=== PATIENT | female | born 1970 | race Caucasian/White ===

== ENCOUNTER 2017-09-02 14:30 | Observation (INO) ==
[2017-09-02] MEDS ORDERED: 0.9 % Sodium Chloride 1,000 ML IVC ONE (15:13)
[2017-09-02 15:29] LABS: Basophils % 0.3 %; Eosinophils % 0.4 %; Hematocrit 35.2 % (35.3-44.9); Hemoglobin 11.7 g/dL (11.5-15.4); Immature Granulocytes % 0.5 % (0-4); Lymphocytes # 2.1 K/mcL (0.6-4.6); Lymphocytes % 18.8 %; Mean Corpuscular HGB Conc 33.2 g/dL (31.6-35.5); Mean Corpuscular Hemoglobin 29.8 pg (28.0-33.3); Mean Corpuscular Volume 89.6 fL (83.0-100.0); Monocytes # 0.7 K/mcL (0.0-1.3); Monocytes % 6.4 %; Platelet Count 273 K/mcL (140-400); Red Blood Count 3.93 M/mcL (3.82-4.97); Red Cell Distribution Width 13.6 % (11.5-14.5); Segmented Neutrophils % 73.6 %
[2017-09-02 15:46] LABS: Alanine Aminotransferase 10 Units/L (7-52); Albumin 3.9 g/dL (3.5-5.7); Albumin/Globulin Ratio 1.6 (1.1-2.2); Alkaline Phosphatase 48 Units/L (34-104); Aspartate Amino Transferase 10 Units/L (13-39); BUN/Creatinine Ratio 18 (6-26); Bilirubin,Total 0.4 mg/dL (0.3-1.0); Blood Urea Nitrogen 10 mg/dL (6-20); Calcium 8.8 mg/dL (8.6-10.3); Carbon Dioxide 23 mEq/L (23-29); Chloride 107 mEq/L (98-107); Globulin 2.4 g/dL (2.4-3.5); Glucose 106 mg/dL (70-105); Osmolality,Calculated 283 (280-300); Potassium 3.4 mEq/L (3.5-5.1); Sodium 137 mEq/L (136-145); Total Protein 6.3 g/dL (6.4-8.9); eGFR For African Americans > 60 (> 60); eGFR For Non-African Americans > 60 (> 60)
--- NOTE | 2017-09-02 15:57 | Emergency Department Note ---
Disposition Clinical Impression: 7 weeks gestation of , Pyelonephritis Disposition: Admitted As Inpatient Condition: Fair Referrals: NONE,PCP [Primary Care Provider] - Forms: ED Satisfaction Letter Time of Disposition: 18:29 HPI - General Chief complaint: ED Urogenital-Female Stated complaint: UTI Time Seen by Provider: 09/02/17 14:40 Source: patient Mode of arrival: ambulatory Limitations: no limitations Nursing Notes Reviewed: Yes Vital Signs Reviewed: Yes - History of Present Illness HPI Narrative: Concern about status. 47-year-old female approximate 7 a half weeks presents for evaluation of right flank pain. Patient was having urinary symptoms over the past 2 days. Patient is having dysuria. Patient denies any vaginal bleeding or discharge. Patient states she started developing some right flank pain. Patient does have a history of kidney stone on the right side. Patient denies any fevers but states she has been taking Tylenol regularly. Patient denies any vomiting but does feel nauseous. Patient's been taking Phenergan at home. The patient denies any abdominal pain. Patient does have a confirmed intrauterine by her [facility] doctor. Patient has established care with them. Patient denies any chest pain or problems breathing. Pain in her right flank is worse with palpation. - Related Data Allergies Allergy/AdvReac Type Severity Reaction Status Date / Time No Known Allergies Allergy Verified 09/02/17 14:34 All systems ED: reviewed and negative except as stated. Constitutional: Reports: as per HPI. Denies: fever Eyes: Reports: as per HPI ENT ED: Reports: as per HPI Cardiovascular: Reports: as per HPI. Denies: chest pain Respiratory: Reports: as per HPI. Denies: cough, dyspnea Gastrointestinal: Reports: as per HPI. Denies: abdominal pain Genitourinary: Reports: as per HPI, dysuria Musculoskeletal: Reports: as per HPI Integumentary: Reports: as per HPI Neurological: Reports: as per HPI Psychiatric: Reports: as per HPI Endocrine: Reports: as per HPI Hematological/Lymphatic: Reports: as per HPI PMH - Social History Smoking Status: Never smoker Alcohol use: Reports: none Drug use: Reports: none Physical Exam - General Limitations: no limitations General appearance: alert, in no apparent distress - Head Head exam: atraumatic, normocephalic, normal inspection - Eye Eye exam: Present: normal appearance, EOMI - ENT ENT exam: normal exam, mucous membranes moist - Neck Neck exam: Present: normal inspection - Chest Chest inspection: Present: normal inspection, symmetric chest wall rise - Respiratory Respiratory exam: Present: normal lung sounds bilaterally. Absent: respiratory distress - Cardiovascular Cardiovascular exam: Present: regular rate, normal rhythm - Abdominal Exam Abdominal exam: Present: soft, tenderness. Absent: distention, guarding, rebound, rigidity - Extremities Exam Extremities exam: Present: normal inspection. Absent: pedal edema - Back Exam Back exam: Present: normal inspection, full ROM. Absent: tenderness, CVA tenderness (R), CVA tenderness (L) - Neurological Exam Neurological exam: Present: alert, oriented X3 - Skin Skin exam: Present: warm, dry, intact, normal color Course Course Narrative: Patient seen and examined. Patient had a bedside ultrasound performed which showed no evidence of hydronephrosis. Patient's kidneys appear to be within the normal dimensions. Patient also had a abdominal ultrasound obtained which showed intrauterine heart rate in the 160s and 170s. Patient will also get a urinalysis, basic lab work regarding kidney function and blood counts. Patient also given IV fluid hydration. Patient denies any need for pain medicine at this time. - Reevaluation(s) Reevaluation #1: Patient seen and examined. Patient's updated on her plan of care. Patient's urinalysis shows signs of infection. Will get a renal ultrasound. Patient denies any need for pain medication at this time. Patient appears to be resting comfortably. Time: 16:31 Reevaluation #2: Patient's updated on plan of care. Patient's agreeable to inpatient admission. Time: 18:28 - Consultations Consultation #1: Spoke with Dr. Escobar and made aware the patient was being admitted to the hospital service for resumed polynephritis with the right flank pain and dysuria with evidence of UTI. Time: 18:07 Vital Signs Temperature 97.9 F 09/02/17 14:30 Pulse Rate 68 09/02/17 14:30 Respiratory Rate 20 09/02/17 14:30 Blood Pressure 122/67 09/02/17 14:30 O2 Sat by Pulse Oximetry 100 09/02/17 14:30 Temperature 97.9 F 09/02/17 14:30 Pulse Rate 68 09/02/17 14:30 Respiratory Rate 20 09/02/17 14:30 Blood Pressure 122/67 09/02/17 14:30 O2 Sat by Pulse Oximetry 100 09/02/17 14:30 Oxygen Delivery Oxygen Delivery Room Air OB/Uterine Contractions - MDM Narrative Medical decision making narrative: 47-year-old female 7 weeks gestation presents for evaluation of right flank pain. Patient does have a history of kidney stones in the past. Patient also been having dysuria and urinary symptoms. Patient had basic lab work including electrolytes as well as blood counts. Patient's urinalysis shows evidence of infection. Patient clinically has urinary symptoms. Patient does have tenderness on the right flank. Patient had a renal ultrasound performed which shows no evidence of hydronephrosis. Patient's symptoms most consistent with pyelonephritis. On Rocephin in the emergency department. Spoke with the on- call [facility] doctor and made where the patient was given a be admitted. There is no further recommendations. Patient denies any for pain medication at this time. Patient agreeable for inpatient admission to initiate therapy. Patient did have a confirmed IUP prior to this ED department stay. Patient had a bedside ultrasound of the uterus which showed good heart tones. Patient did not get a pelvic exam as the patient is not complaining of any vaginal symptoms. There is no vaginal discharge or bleeding. - Lab Data Lab results reviewed: Yes I reviewed the patient's lab results. Result diagrams: 09/02/17 15:22 09/02/17 15:22 Lab Results 09/02/17 09/02/17 09/02/17 Range/Units 15:22 15:22 16:01 WBC 10.9 (4.3-11.1) K/mcL RBC 3.93 (3.82-4.97) M/mcL Hgb 11.7 (11.5-15.4) g/dL Hct 35.2 L (35.3-44.9) % MCV 89.6 (83.0-100.0) fL MCH 29.8 (28.0-33.3) pg MCHC 33.2 (31.6-35.5) g/dL RDW 13.6 (11.5-14.5) % Plt Count 273 (140-400) K/mcL MPV 10.0 (9.4-12.4) fL Immature Gran % 0.5 (0-4) % Seg Neutrophils % 73.6 % Lymphocytes % 18.8 % Monocytes % 6.4 % Eosinophils % 0.4 % Basophils % 0.3 % Neutrophils # 8.0 (1.6-8.9) K/mcL Lymphocytes # 2.1 (0.6-4.6) K/mcL Monocytes # 0.7 (0.0-1.3) K/mcL Eosinophils # 0.0 (0.0-0.6) K/mcL Basophils # 0.0 (0.0-0.2) K/mcL Sodium 137 (136-145) mEq/L Potassium 3.4 L (3.5-5.1) mEq/L Chloride 107 (98-107) mEq/L Carbon Dioxide 23 (23-29) mEq/L BUN 10 (6-20) mg/dL Creatinine 0.57 L (0.60-1.20) mg/dL Est GFR ( Amer) > 60 (> 60) Est GFR (Non-Af Amer) > 60 (> 60) BUN/Creatinine Ratio 18 (6-26) Glucose 106 H (70-105) mg/dL Calculated Osmolality 283 (280-300) Calcium 8.8 (8.6-10.3) mg/dL Total Bilirubin 0.4 (0.3-1.0) mg/dL AST 10 L (13-39) Units/L ALT 10 (7-52) Units/L Alkaline Phosphatase 48 (34-104) Units/L Serum Total Protein 6.3 L (6.4-8.9) g/dL Albumin 3.9 (3.5-5.7) g/dL Globulin 2.4 (2.4-3.5) g/dL Albumin/Globulin Ratio 1.6 (1.1-2.2) Urine Color Yellow (Yellow) Urine Clarity Cloudy A (Clear) Urine pH 6.0 (5.0-8.0) pH Units Ur Specific [place] > 1.030 H (1.010-1.025) Urine Protein Negative (Neg-Trace) mg/dL Urine Glucose (UA) Normal (Normal) mg/dL Urine Ketones Negative (Negative) mg/dL Urine Blood Moderate H (Negative) Urine Nitrite Negative (Negative) Urine Bilirubin Negative (Negative) Urine Urobilinogen Normal (Normal) mg/dL Ur Leukocyte Esterase Moderate H (Negative) Urine Microscopic RBC 3-5 H (0-3) per hpf Urine Microscopic WBC 30-50 H (0-3) per hpf Ur Squamous Epith Cells Many H (None-Few) per lpf Urine Bacteria Many H (None-Few) per hpf Hyaline Casts Moderate H (None-Few) per lpf Ur Culture Indicated? NO (NO) Urine Test (Negative) 09/02/17 Range/Units 16:01 WBC (4.3-11.1) K/mcL RBC (3.82-4.97) M/mcL Hgb (11.5-15.4) g/dL Hct (35.3-44.9) % MCV (83.0-100.0) fL MCH (28.0-33.3) pg MCHC (31.6-35.5) g/dL RDW (11.5-14.5) % Plt Count (140-400) K/mcL MPV (9.4-12.4) fL Immature Gran % (0-4) % Seg Neutrophils % % Lymphocytes % % Monocytes % % Eosinophils % % Basophils % % Neutrophils # (1.6-8.9) K/mcL Lymphocytes # (0.6-4.6) K/mcL Monocytes # (0.0-1.3) K/mcL Eosinophils # (0.0-0.6) K/mcL Basophils # (0.0-0.2) K/mcL Sodium (136-145) mEq/L Potassium (3.5-5.1) mEq/L Chloride (98-107) mEq/L Carbon Dioxide (23-29) mEq/L BUN (6-20) mg/dL Creatinine (0.60-1.20) mg/dL Est GFR ( Amer) (> 60) Est GFR (Non-Af Amer) (> 60) BUN/Creatinine Ratio (6-26) Glucose (70-105) mg/dL Calculated Osmolality (280-300) Calcium (8.6-10.3) mg/dL Total Bilirubin (0.3-1.0) mg/dL AST (13-39) Units/L ALT (7-52) Units/L Alkaline Phosphatase (34-104) Units/L Serum Total Protein (6.4-8.9) g/dL Albumin (3.5-5.7) g/dL Globulin (2.4-3.5) g/dL Albumin/Globulin Ratio (1.1-2.2) Urine Color (Yellow) Urine Clarity (Clear) Urine pH (5.0-8.0) pH Units Ur Specific [place] (1.010-1.025) Urine Protein (Neg-Trace) mg/dL Urine Glucose (UA) (Normal) mg/dL Urine Ketones (Negative) mg/dL Urine Blood (Negative) Urine Nitrite (Negative) Urine Bilirubin (Negative) Urine Urobilinogen (Normal) mg/dL Ur Leukocyte Esterase (Negative) Urine Microscopic RBC (0-3) per hpf Urine Microscopic WBC (0-3) per hpf Ur Squamous Epith Cells (None-Few) per lpf Urine Bacteria (None-Few) per hpf Hyaline Casts (None-Few) per lpf Ur Culture Indicated? (NO) Urine Test Positive A (Negative) - Radiology Data Radiology results reviewed: Yes I reviewed the patient's radiology results. Retroperitoneum Ultrasound 09/02/17 15:14 IMPRESSION: Unremarkable ultrasound of the kidneys and urinary bladder. D/ / Jim Marinelli MD / Jim Marinelli MD Interpreting Provider: Jim Marinelli MD Attestation Statement - Attestation Attestation: I, Terrence Hutchison DO, examined this patient [id number] and my medical decision-making was reviewed with Dr. Jose Farris, Resident Physician. I agree with the documented findings, disposition and treatment plan as described except to the extent set forth below. Please see my progress notes for details. 47-year-old female that is approximate 7 weeks based on last menstrual period and confirmatory transvaginal ultrasound presents emergency room with right-sided flank pain. Patient was treated prophylactically for urinary tract infection several weeks ago. She followed up with her obstetrics provider. The culture was negative at that time. She has had no complications. Denies any vaginal bleeding discharge cramping abnormal uterine bleeding or dysfunction at this time. Patient came in today because she was seen in urgent care for possible right-sided flank pain and urinary tract infection. They are concerned about the urine being affected and possible pyelonephritis. Patient does have a history of renal calculi and obstructing stone on that same side. Bedside ultrasound was utilized looking at the kidneys and appear to be symmetrical this time with 11 cm of overall anatomical length by 4.5 cm overall anatomical width. There are symmetric bilaterally based on evaluation. No acute signs of hydronephrosis noted at this point. Patient had urinalysis screening laboratory workup completed and then if the urine is infected and we will discuss doing definitive imaging modality of the right flank. Patient is concerning secondary to the for possible pyelonephritis and cystitis secondary to bladder dysmotility from . Patient informed of our projected course of care. Otherwise the physical exam is unremarkable. Abdomen is soft nontender nondistended with no point tenderness or guarding. She has no specific CVA tenderness but she does describe some pain with palpation over the right flank of the abdomen. Bedside ultrasound was also utilized to evaluate the fetus. Gestational sac appears to be within the uterus there is a heart tone does appear to be between 1 6170 but no visible anatomical structure noted at this point. Patient will have completion course of care in the disposition determined. See detailed documentation of the physical exam, medical intervention, medical decision-making and disposition and the resident physician's note. 1700 Patient has urine that is concerning for infection at this time. Formal ultrasound of the kidneys to be completed. Discussion will be had with obstetrics and hospitals for possible admission. Appears to be pyelonephritis and early gestation. First dose of Rocephin given here. No other clinical concern noted during evaluation.
[2017-09-02 16:15] LABS: Bilirubin,Urine Negative (Negative); Blood,Urine Moderate (Negative); Clarity,Urine Cloudy (Clear); Color,Urine Yellow (Yellow); Glucose,Urine (UA) Normal (Normal); Ketones,Urine Negative (Negative); Leukocyte Esterase,Urine Moderate (Negative); Nitrite,Urine Negative (Negative); Protein,Urine Negative (Neg-Trace); Specific Gravity,Urine > 1.030 (1.010-1.025); Urobilinogen,Urine Normal (Normal)
[2017-09-02 16:17] LABS: Bacteria,Urine Many per hpf (None-Few); Hyaline Casts,Urine Moderate per lpf (None-Few); Squamous Epithelial Cell,Urine Many per lpf (None-Few); WBC,Urine 30-50 per hpf (0-3)
[2017-09-02] MEDS ORDERED: cefTRIAXone 1,000 MG in Water for inj. (sterile) 10 ML IVP ONE (16:22)
[2017-09-02] MEDS ORDERED: Acetaminophen 325 MG TABLET PO PRN (19:53)
--- NOTE | 2017-09-02 20:06 | Internal Med History&Physical ---
Date of Encounter: 09/02/17 Time of Encounter: 19:15 Assessment and Plan (1) DVT prophylaxis Current visit: Yes Status: Acute Pt has no hx or family Hx of PE/DVT. Her symptoms is mild and she keeps her normal activities. 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 Pt doesn't want heparin or lovenox. She promise to keep ambulating and we put EPCD when she is at bed rest. (2) UTI (urinary tract infection) Current visit: No Status: Acute Pt has fever, right flank pain, UA positive. Consider acute pyelonephritis. Py is afebrile in ER and WBC is WNL. - OB consulted by ER physician. - Rocephin started in ER, will continue rocephin 1000mg iv daily. - Encourage pt to hydrate herself. Qualifiers: Urinary tract infection type: acute pyelonephritis Qualified Code(s): N10 - Acute pyelonephritis (3) 7 weeks gestation of Current visit: Yes Status: Acute Bedside US done by ER physician, shows good fetus heart beating per ER documentation. Pt will f/u her OB as outpatient. (4) Pyelonephritis Current visit: Yes Status: Acute Management as above. Internal Medicine - H&P: HPI Chief complaint: Dysuria, right flank pain Admitted From: Home Plans for Post Hospital Care: Home History of present illness: Ms. Lomax is a 47 year old female with hx of right kidney stone s/p stone extraction, with 7and1/2 weeks of present to ER for dysuria and right flank pain. Dysuria and burning on urination stated yesterday. Pt has right flank pain since this morning. She feels fever and took Tylenol by herself but doesn't know the exact number. Pt has nausea but thinks it is due to because it is not new. No vomiting. Pt came to ER with concern of kidney stone. US rt kidney shows no stone or hydronephrosis. UA shows UTI. Pt was admitted for UTI and suspected pyelonephritis. Past Med Surg Social Fam HX - Past Medical History Medical history: non-contributory, kidney stones Psychiatric history: no psych history - Past Surgical History Surgical History: cholecystectomy - Social History Smoking Status: Never smoker Smokeless Tobacco Status: No Alcohol use: none Drug use: none - Family History Father Hx Family Neurologic Disorders: (Brain bleed) Internal Medicine - H&P: Meds 3 Allergy/AdvReac Type Severity Reaction Status Date / Time No Known Allergies Allergy Verified 09/02/17 14:34 All Systems PM: A 10-system review of systems was performed and is negative for pertinent findings except as documented above in the HPI. - Constitutional Vitals: Temp Pulse Resp BP Pulse Ox 97.9 F 77 12 121/61 100 09/02/17 14:30 09/02/17 18:28 09/02/17 19:37 09/02/17 19:37 09/02/17 18:28 General appearance: Present: A&O X 3, pleasant, no acute distress, answers questions appropriately - Head Head exam: Present: atraumatic, normocephalic - Eye Eye exam: Present: PERRL, conjuntiva pink, sclera anicteric Pupils: Present: PERRL - Neck Neck exam general surgery: Present: supple, trachea midline. Absent: lymphadenopathy - Respiratory Respiratory exam: Present: CTAB. Absent: accessory muscle use, rales, rhonchi, wheezes - Cardiovascular Cardiovascular exam: Present: RRR, +S1, +S2. Absent: diastolic murmur, gallop, rubs, systolic murmur - GI/Abdominal GI/Abdominal exam: Present: normal bowel sounds, soft, no peritoneal signs. Absent: distended, tenderness Additional comments: CVAT negative B/L - Extremities Exam Extremities exam: Present: warm, radial pulses palpable and symmetrical. Absent : calf tenderness, cyanotic, pedal edema - Neurological Exam Neurological exam: Present: CN II-XII intact, oriented X3, no focal deficits. Absent: pronater drift, facial droop, speech deficit - Skin Skin exam: Present: dry, intact Internal Med - H&P Results - Labs CBC & Chem 7: 09/02/17 15:22 09/02/17 15:22
[2017-09-03 05:16] LABS: Basophils % 0.3 %; Eosinophils # 0.1 K/mcL (0.0-0.6); Eosinophils % 0.5 %; Hematocrit 32.8 % (35.3-44.9); Immature Granulocytes % 0.3 % (0-4); Lymphocytes # 2.2 K/mcL (0.6-4.6); Lymphocytes % 24.3 %; Mean Corpuscular HGB Conc 33.5 g/dL (31.6-35.5); Mean Corpuscular Hemoglobin 29.7 pg (28.0-33.3); Mean Corpuscular Volume 88.6 fL (83.0-100.0); Mean Platelet Volume 10.4 fL (9.4-12.4); Monocytes # 0.7 K/mcL (0.0-1.3); Monocytes % 7.6 %; Neutrophils # 6.2 K/mcL (1.6-8.9); Platelet Count 241 K/mcL (140-400); Red Cell Distribution Width 13.7 % (11.5-14.5)
[2017-09-03 05:34] LABS: BUN/Creatinine Ratio 15 (6-26); Blood Urea Nitrogen 8 mg/dL (6-20); Calcium 8.6 mg/dL (8.6-10.3); Carbon Dioxide 24 mEq/L (23-29); Chloride 109 mEq/L (98-107); Glucose 96 mg/dL (70-105); Osmolality,Calculated 284 (280-300); Potassium 3.4 mEq/L (3.5-5.1); Sodium 138 mEq/L (136-145); eGFR For African Americans > 60 (> 60); eGFR For Non-African Americans > 60 (> 60)
--- NOTE | 2017-09-03 10:39 | Internal Med Progress Note ---
Date of Encounter: 09/03/17 Time of Encounter: 08:40 - Assessment and plan (1) UTI (urinary tract infection) Current Visit: Yes Status: Acute Assessment and plan: Urine cloudy, moderate amount of blood and leukocyte esterase, moderate amount hyaline casts. Many bacteria noted, microscopic white cells 30-50. Patient reports right flank pain and dysuria. Patient has positive CVA tenderness right side. She has remained afebrile. Continue Rocephin urine culture is pending. Tylenol for pain. Qualifiers: Urinary tract infection type: acute pyelonephritis Qualified Code(s): N10 - Acute pyelonephritis (2) 7 weeks gestation of Current Visit: Yes Status: Acute Assessment and plan: Intrauterine shown by ultrasound in the emergency department. Patient was aware of . She will follow up with her own OB. (3) Pyelonephritis Current Visit: Yes Status: Acute Assessment and plan: Plan as above. (4) DVT prophylaxis Current Visit: Yes Status: Acute Assessment and plan: Patient has declined pharmacologic prophylaxis. She is ambulatory in the room. SCDs ordered for bed rest. - Time Spent With Patient less than 15 minutes - Subjective Interval history: Patient was seen and assessed at 8:40 AM. She is alert and awake and pleasant. She reports continued right flank pain and is agreeable to continued admission due to pyelonephritis and . She denies headache, blurred vision, abdominal pain, vaginal discharge or vaginal bleeding. She reports nausea that has been present since being . - Constitutional Vitals: Temp Pulse Resp BP Pulse Ox 99.6 F 72 18 110/70 97 09/03/17 07:36 09/03/17 07:36 09/03/17 07:36 09/03/17 07:36 09/03/17 07:36 General appearance: Present: cooperative, A&O X 3, pleasant, no acute distress, answers questions appropriately - Head Head exam: Present: atraumatic, normal inspection, normocephalic - Eye Eye exam: Present: normal appearance, conjuntiva pink, sclera anicteric - Neck Neck exam general surgery: Present: supple, trachea midline. Absent: lymphadenopathy - Respiratory Respiratory exam: Present: CTAB. Absent: accessory muscle use, chest wall tenderness, rales, rhonchi, wheezes - Cardiovascular Cardiovascular exam: Present: RRR, +S1, +S2. Absent: diastolic murmur, gallop, rubs, systolic murmur - GI/Abdominal GI/Abdominal exam: Present: normal bowel sounds, soft. Absent: distended, hepatomegaly, tenderness - Extremities Exam Extremities exam: Present: normal capillary refill, normal inspection, warm, radial pulses palpable and symmetrical. Absent: calf tenderness, cyanotic, pedal edema, tenderness - Neurological Exam Neurological exam: Present: alert, oriented X3, no focal deficits. Absent: facial droop, speech deficit - Skin Skin exam: Present: dry, intact, normal color, warm. Absent: rash Internal Medicine: Result - Labs CBC & Chem 7: 09/03/17 04:11 09/03/17 04:11 Labs: Short CBC 09/03/17 Range/Units 04:11 WBC 9.2 (4.3-11.1) K/mcL Hgb 11.0 L (11.5-15.4) g/dL Hct 32.8 L (35.3-44.9) % Plt Count 241 (140-400) K/mcL Neutrophils # 6.2 (1.6-8.9) K/mcL BMP 09/03/17 04:11 Sodium 138 Potassium 3.4 L Chloride 109 H Carbon Dioxide 24 BUN 8 Creatinine 0.54 L Glucose 96 Calcium 8.6 Consult Discharge Plan - Plan Referrals: NONE,PCP [Primary Care Provider] -
[2017-09-03] MEDS: cefTRIAXone 1,000 MG in Water for inj. (sterile) 10 ML IVPB SCH (15:16)
--- NOTE | 2017-09-04 11:09 | OB/GYN Progress Note ---
Date of Encounter: 09/04/17 Time of Encounter: 10:45 - Assessment and Plan (1) 8 weeks gestation of Current Visit: Yes Status: Acute Follow up in office with routine care as scheduled. (2) Pyelonephritis Current Visit: Yes Status: Acute At the time of assessment the urine culture was not available, so it is recommended to use Keflex PO until microbiological results are available. Patient may be discharged home with phenergan for nausea or may use an OTC combination of 1/2 tablet of unisom at bedtime along with Vitamin B6 every 8 hours for nausea and vomiting of . Patient may also be discharged home with metoclopramide TID with meals and before bed if nausea not controlled with previous recommendations. Patient to follow up in office for routinely scheduled care. Thank you for this consult. Subjective - Subjective Principal diagnosis: Pyelonephritis Interval history: Ms Lomax, a 47 year old at 8 weeks and 0 days gestation was admitted to a medical-surgical floor for pyelonephritis on September 02. She has been receiving IV antibiotics since admission and states that her flank pain has resolved. She c/o nausea and states the phenergan she was given did help. She denies headaches, vision changes, epigastric pain, cramping, vaginal discharge, vaginal bleeding, and leaking of fluid. We have been consulted from an obstetrical standpoint. Antepartum ROS: no new complaints, no loss of fluid, no vaginal bleeding, no contractions Objective - Vital Signs Vital Signs: Vital Signs Temp Pulse Resp BP Pulse Ox 09/04/17 10:42 98.2 F 73 20 91/48 96 09/04/17 06:53 98.2 F 65 18 106/62 09/04/17 02:51 98.2 F 63 16 124/71 97 09/03/17 22:56 97.9 F 58 18 98/44 98 09/03/17 18:32 98 F 79 16 110/65 100 09/03/17 14:59 99.4 F 71 20 103/66 100 Intake and Output 09/03/17 09/04/17 09/04/17 23:59 07:59 15:59 Intake Total 120 / 120 100 / 100 120 / 120 Output Total 1200 / 1200 150 / 150 Balance -1080 / -1080 -50 / -50 120 / 120 Intake: Oral 120 / 120 100 / 100 120 / 120 Output: Urine 1200 / 1200 150 / 150 Other: Meal Dinner Breakfast Percent of Meal Consumed 30% 50% # Voids 1 Weight 88.269 kg Patient Weight 09/04/17 23:59 Weight 88.269 kg - Exam FHR comments: Did not auscultate due to gestation. - Labs Labs: Abnormal lab results RBC 3.70 M/mcL (3.82-4.97) L 09/03/17 04:11 Hgb 11.0 g/dL (11.5-15.4) L 09/03/17 04:11 Hct 32.8 % (35.3-44.9) L 09/03/17 04:11 Potassium 3.4 mEq/L (3.5-5.1) L 09/03/17 04:11 Chloride 109 mEq/L (98-107) H 09/03/17 04:11 Creatinine 0.54 mg/dL (0.60-1.20) L 09/03/17 04:11 AST 10 Units/L (13-39) L 09/02/17 15:22 Serum Total Protein 6.3 g/dL (6.4-8.9) L 09/02/17 15:22 Urine Clarity Cloudy (Clear) A 09/02/17 16:01 Ur Specific [place] > 1.030 (1.010-1.025) H 09/02/17 16:01 Urine Blood Moderate (Negative) H 09/02/17 16:01 Ur Leukocyte Esterase Moderate (Negative) H 09/02/17 16:01 Urine Microscopic RBC 3-5 per hpf (0-3) H 09/02/17 16:01 Urine Microscopic WBC 30-50 per hpf (0-3) H 09/02/17 16:01 Ur Squamous Epith Cells Many per lpf (None-Few) H 09/02/17 16:01 Urine Bacteria Many per hpf (None-Few) H 09/02/17 16:01 Hyaline Casts Moderate per lpf (None-Few) H 09/02/17 16:01 Urine Test Positive (Negative) A 09/02/17 16:01
[2017-09-04 14:56] VITALS: BP 96/54
--- NOTE | 2017-09-04 15:08 | Discharge Summary ---
Date of Encounter: 09/04/17 Time of Encounter: 11:00 - Discharge Diagnosis (1) Pyelonephritis Priority: Primary Status: Acute Comments: Presented with right flank pain, dysuria or frequency. UA indicative of UTI. Afebrile, no elevated WBC. Received 2 doses IV Rocephin while inpatient. No urine culture available for review at time of discharge. Evaluated by PIANO REFINISHER who recommended discharging on Keflex. Symptoms significantly improved at time of discharge. (2) 8 weeks gestation of Priority: Primary Status: Acute Comments: confirmed intrauterine per her outpatient PIANO REFINISHER. Evaluated by OB and patient who recommended follow-up in office with routine care as scheduled. - Discharge Medications Prescriptions: Promethazine [Phenergan] 12.5 mg PO Q6HR PRN #28 tablet PRN Reason: Nausea And Vomiting Cephalexin [Keflex] 500 mg PO BID #16 capsule Home Medications: Gabapentin [Neurontin] 300 mg PO TID 09/03/17 [History] Pnv with Ca,No.72/Iron/FA [Pnv Plus Multivit Tab] 1 tab PO DAILY [History] Tizanidine HCl 4 mg PO TID PRN 09/03/17 [History] Cephalexin [Keflex] 500 mg PO BID #16 capsule 09/04/17 [Rx] Promethazine [Phenergan] 12.5 mg PO Q6HR PRN #28 tablet 09/04/17 [Rx] Allergies/Adverse Reactions: 3 Allergy/AdvReac Type Severity Reaction Status Date / Time No Known Allergies Allergy Verified 09/02/17 14:34 Date of admission: 09/02/17 19:15 Primary care physician: PCP NONE Consults: 09/04/17 09:53 Consult to ETYMOLOGY PROFESSOR [CONS] Routine Consulting Provider: PIANO REFINISHER [place] Reason for Consult: UTI/pyleonephritis Call Completed: Yes Discharging clinician: Radah Singh Anticipated date of discharge: 09/04/17 - Patient Status Disposition: Home, Self-Care Condition: Good Functional capacity at discharge: independent ambulation Overall status at discharge: patient is back to baseline - Discharge Instructions Instructions: Urinary Tract Infection in Women (DC), Acute Pyelonephritis (DC) , Cephalexin (By mouth), Promethazine (By mouth) Follow Up With: NONE,PCP [Primary Care Provider] - - Diet and Activity Activity: increase activity as tolerated Diet: advance to your usual diet Interval History: Seen and examined at bedside, patient is new to me. Information obtained from chart review and patient report. A short reports minimal right flank pain, no dysuria or frequency. Says she feels better overall like to discharge home today. No ABD pain, no vaginal bleeding Hospital course: See assessment and plan for hospital course - Time Spent with Patient Total time spent providing and/or coordinating discharge services: - Constitutional Vitals: Temp Pulse Resp BP Pulse Ox 98.5 F 79 18 96/54 100 09/04/17 14:54 09/04/17 14:54 09/04/17 14:54 09/04/17 14:54 09/04/17 14:54 General appearance: Present: cooperative, A&O X 3, pleasant, no acute distress, answers questions appropriately - Head Head exam: Present: atraumatic, normocephalic - Eye Eye exam: Present: PERRL, conjuntiva pink, sclera anicteric Pupils: Present: PERRL - Neck Neck exam general surgery: Present: supple, trachea midline. Absent: lymphadenopathy - Respiratory Respiratory exam: Present: CTAB. Absent: accessory muscle use, rales, rhonchi, wheezes - Cardiovascular Cardiovascular exam: Present: RRR, +S1, +S2. Absent: diastolic murmur, gallop, rubs, systolic murmur - GI/Abdominal GI/Abdominal exam: Present: normal bowel sounds, soft, no peritoneal signs. Absent: distended, tenderness - Extremities Exam Extremities exam: Present: warm, radial pulses palpable and symmetrical. Absent : calf tenderness, cyanotic, pedal edema - Neurological Exam Neurological exam: Present: CN II-XII intact, oriented X3, no focal deficits. Absent: pronater drift, facial droop, speech deficit - Skin Skin exam: Present: dry, intact
[2017-09-04] MEDS: cefTRIAXone 1,000 MG in Water for inj. (sterile) 10 ML IVPB SCH (16:28)
== END 2017-09-04 16:40 | disposition home or self-care (01) ==
LOC: 3BNU 14:30 → EMEROO 14:30 → 3BNU 19:40
PROVIDERS: ADMIT Nurse Practitioner Family; ATTEND Registered Nurse

== ENCOUNTER → 2018-02-17 19:34 | Observation (INO) ==
[2018-02-17 14:59] LABS: Bilirubin,Urine Negative (Negative); Blood,Urine Trace-intact (Negative); Clarity,Urine Clear (Clear); Color,Urine Yellow (Yellow); Glucose,Urine (UA) Normal (Normal); Ketones,Urine 15 mg/dL (Negative); Leukocyte Esterase,Urine Negative (Negative); Nitrite,Urine Negative (Negative); Protein,Urine Negative (Neg-Trace); Urobilinogen,Urine Normal (Normal)
[2018-02-17 15:05] LABS: Bacteria,Urine Few per hpf (None-Few); RBC,Urine 0-3 per hpf (0-3); WBC,Urine 0-3 per hpf (0-3)
[2018-02-17 15:19] LABS: Amphetamine Screen,Urine Negative ng/mL (Cutoff=1000); Barbiturate Screen,Urine Negative ng/mL (Cutoff=200); Benzodiazepines Screen,Urine Negative ng/mL (Cutoff=200); Cannabinoid Screen,Urine Negative ng/mL (Cutoff = 50); Cocaine Screen,Urine Negative ng/mL (Cutoff= 300); Opiate Screen,Urine Negative ng/mL (Cutoff=300); Phencyclidine Screen,Urine Negative ng/mL (Cutoff=25)
[2018-02-17 15:31] LABS: Basophils % 0.2 %; Eosinophils # 0.1 K/mcL (0.0-0.6); Eosinophils % 0.7 %; Hemoglobin 10.9 g/dL (11.5-15.4); Immature Granulocytes % 0.7 % (0-4); Lymphocytes # 1.8 K/mcL (0.6-4.6); Lymphocytes % 14.9 %; Mean Corpuscular HGB Conc 34.1 g/dL (31.6-35.5); Mean Corpuscular Hemoglobin 29.8 pg (28.0-33.3); Mean Corpuscular Volume 87.4 fL (83.0-100.0); Mean Platelet Volume 10.6 fL (9.4-12.4); Monocytes # 0.8 K/mcL (0.0-1.3); Monocytes % 6.6 %; Neutrophils # 9.3 K/mcL (1.6-8.9); Platelet Count 175 K/mcL (140-400); Red Blood Count 3.66 M/mcL (3.82-4.97); Red Cell Distribution Width 14.5 % (11.5-14.5); Segmented Neutrophils % 76.9 %
--- NOTE | 2018-02-17 15:50 | Anesthesia Progress Note ---
Date of Encounter: 02/17/18 Time of Encounter: 15:39 Anesthesia Note - Note Note: Anesthesia Consult Pt was seen regarding possibility of epidural placement in upcoming labor. Pt is currently 31 weeks . Pt states she had a fall approximately 1 year ago prior to . 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 Pt also stated that she is to undergo post- spinal surgical intervention regarding L5-S1 disc herniation. After speaking with patient regarding these issues and also speaking with Dr. Simi MD, it was determined that with pre-existing neuropathies, it would be in her best interest to avoid epidural placement during labor. Pt was understanding of this determination. 02/17/18 15:39 02/17/18 15:51 02/17/18 15:56 Reason for Cancellation: Other
[2018-02-17 15:57] LABS: BUN/Creatinine Ratio 12 (6-26); Blood Urea Nitrogen 5 mg/dL (6-20); Calcium 8.3 mg/dL (8.6-10.3); Carbon Dioxide 22 mEq/L (23-29); Chloride 107 mEq/L (98-107); Glucose 92 mg/dL (70-105); Osmolality,Calculated 283 (280-300); Potassium 2.7 mEq/L (3.5-5.1); Sodium 138 mEq/L (136-145); eGFR For African Americans > 60 (> 60); eGFR For Non-African Americans > 60 (> 60)
--- NOTE | 2018-02-17 19:26 | OB/GYN Progress Note ---
Date of Encounter: 02/17/18 Time of Encounter: 19:18 - Assessment and Plan (1) Right flank pain Current Visit: Yes Status: Acute UA with trace blood. Negative leukocytes. Negative nitrites. Ultrasound shows: No evidence of urinary tract stone disease or hydronephrosis. Small complex cystic area at the left renal superior pole, without an internal vascularity is indeterminate, possibly a hemorrhagic or proteinaceous cyst. This is new compared with prior exams. Recommend follow-up ultrasound to assess for change or persistence. Determination for additional imaging such as MRI may be made at that time. Suspect pt has passed a stone. Will treat pain with flexeril. Push PO fluids. Discharge home with precautions. POC discussed with Dr. Connelly (2) 31 weeks gestation of Current Visit: Yes Status: Acute (3) Advanced maternal age during in third trimester Current Visit: No Status: Acute Subjective - Subjective Interval history: 47 year-old presenting at 31w4d with c/o right flank pain that radiates to right side of abdomen. She states the pain started last evening and has gotten worse. She has a history of kidney stones with most recent one year ago. She also had pyelonephritis about 2 months ago. She states the pain is similar to those events. She denies contractions, leaking, bleeding. Good FM. She does also reports some suprapubic tenderness. No fevers or chills. She also has a history of a bulging disc in her lumbar spine for which she is to have surgery once she is no longer . Antepartum ROS: movement normal, no loss of fluid, no vaginal bleeding, no contractions Objective - Vital Signs Vital Signs: Intake and Output 02/17/18 02/17/18 02/17/18 07:59 15:59 23:59 Other: Weight 91.5 kg Patient Weight 02/17/18 23:59 Weight 91.5 kg - Exam FHR: category 1 FHR comments: FHT reassuring for GA Auscultation: bilateral: normal Abdomen: Present: soft, gravid, tenderness (suprapubic tenderness, no fundal tenderness) Uterus: Present: normal. Absent: tenderness Comments: +right CVAT - Labs Labs: Abnormal lab results WBC 12.1 K/mcL (4.3-11.1) H 02/17/18 15:13 RBC 3.66 M/mcL (3.82-4.97) L 02/17/18 15:13 Hgb 10.9 g/dL (11.5-15.4) L 02/17/18 15:13 Hct 32.0 % (35.3-44.9) L 02/17/18 15:13 Neutrophils # 9.3 K/mcL (1.6-8.9) H 02/17/18 15:13 Potassium 2.7 mEq/L (3.5-5.1) L 02/17/18 15:13 Carbon Dioxide 22 mEq/L (23-29) L 02/17/18 15:13 BUN 5 mg/dL (6-20) L 02/17/18 15:13 Creatinine 0.43 mg/dL (0.60-1.20) L 02/17/18 15:13 Calcium 8.3 mg/dL (8.6-10.3) L 02/17/18 15:13 Urine Ketones 15 mg/dL (Negative) H 02/17/18 14:45 Urine Blood Trace-intact (Negative) H 02/17/18 14:45
[~2018-02-17 19:34] MED LIST: *HR* OxyCODONE Immed Rel 5 MG TABLET PO PRN; Ondansetron 4 MG/2 ML VIAL IVP PRN; Ringers Solution, Lactated 1,000 ML IVC ONE; Ringers Solution, Lactated 500 ML IVC ONE
== END | disposition home or self-care (01) ==
LOC: 1NENULAB
PROVIDERS: ADMIT Registered Nurse; ATTEND Registered Nurse

== ENCOUNTER → 2018-02-26 10:44 | Observation (INO) ==
[2018-02-26 10:25] LABS: Amphetamine Screen,Urine Negative ng/mL (Cutoff=1000); Barbiturate Screen,Urine Negative ng/mL (Cutoff=200); Benzodiazepines Screen,Urine Negative ng/mL (Cutoff=200); Cannabinoid Screen,Urine Negative ng/mL (Cutoff = 50); Cocaine Screen,Urine Negative ng/mL (Cutoff= 300); Opiate Screen,Urine Negative ng/mL (Cutoff=300); Phencyclidine Screen,Urine Negative ng/mL (Cutoff=25)
--- NOTE | 2018-02-26 10:40 | Discharge Summary ---
Date of Encounter: 02/26/18 Time of Encounter: 10:39 - Discharge Diagnosis (1) 32 weeks gestation of Priority: Secondary Status: Acute Comments: admitted for observation for decreased movement (2) Advanced maternal age during in third trimester Priority: Secondary Status: Acute (3) NST (non-stress test) reactive on surveillance Priority: Primary Status: Acute Comments: reactive nst. FHR baseline 130 bpm moderate variability +15x15 accels no decels noted. - Discharge Medications Home Medications: Pnv with Ca,No.72/Iron/FA [Pnv Plus Multivit Tab] 1 tab PO DAILY [History] Ferrous Sulfate [Iron] 2 tab PO DAILY 02/05/18 [History] Tylenol 500 mg PO PRN PRN 02/26/18 [History] Allergies/Adverse Reactions: 3 Allergy/AdvReac Type Severity Reaction Status Date / Time No Known Allergies Allergy Verified 02/17/18 14:29 Data Procedures and tests throughout hospitalization: Laboratory Tests 02/26/18 09:45 Urine Opiates Screen Negative Ur Barbiturates Screen Negative Ur Phencyclidine Scrn Negative Ur Amphetamines Screen Negative U Benzodiazepines Scrn Negative Urine Cocaine Screen Negative U Marijuana (THC) Screen Negative Labs on day of discharge: Labs from last 24 hours 02/26/18 09:45 Urine Opiates Screen Negative Ur Barbiturates Screen Negative Ur Phencyclidine Scrn Negative Ur Amphetamines Screen Negative U Benzodiazepines Scrn Negative Urine Cocaine Screen Negative U Marijuana (THC) Screen Negative Date of admission: 02/26/18 09:23 Primary care physician: PCP NONE Discharging clinician: Ines Machado Anticipated date of discharge: 02/26/18 - Patient Status Disposition: Home, Self-Care Condition: Good Functional capacity at discharge: independent ambulation - Discharge Instructions Follow Up With: NONE,PCP [Primary Care Provider] - Giovana Connelly MD [Partnered Physician] - - Diet and Activity Activity: increase activity as tolerated Diet: regular diet 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 Patient denies and LOF, VB or contractions. Patient states she has only felt baby move twice in the two hours prior to coming to labor and delivery. Time Attestation: Total time spent providing and/or coordinating discharge services: Exam - Constitutional General appearance IM: A&O X 3, pleasant, answers questions appropriately - Respiratory Respiratory exam: Present: CTAB - Cardiovascular Cardiovascular exam IM: Present: RRR, +S1, +S2 - GI/Abdominal GI/Abdominal exam IM: normal bowel sounds - Extremities Exam Extremities exam IM: Present: full ROM, normal capillary refill, normal inspection - Neurological Exam Neurological exam: alert, oriented X3, reflexes normal - Other Additional findings: FHT 130 bpm moderate variability +15x15 accels no decels noted. Reactive nst - VTE Reasons for not Prescribing Prophylaxis: Treatment not Indicated - Low risk for VTE
== END | disposition home or self-care (01) ==
LOC: 1NENULAB
PROVIDERS: ADMIT Obstetrics & Gynecology; ATTEND Obstetrics & Gynecology

== ENCOUNTER → 2018-02-28 16:20 | Observation (INO) ==
[2018-02-28 13:33] LABS: Bilirubin,Urine Negative (Negative); Blood,Urine Negative (Negative); Clarity,Urine Cloudy (Clear); Color,Urine Dark Yellow (Yellow); Glucose,Urine (UA) Normal (Normal); Ketones,Urine 80 mg/dL (Negative); Leukocyte Esterase,Urine Large (Negative); Nitrite,Urine Negative (Negative); Protein,Urine 30 mg/dL (Neg-Trace); Specific Gravity,Urine 1.022 (1.010-1.025); Urobilinogen,Urine Normal (Normal)
[2018-02-28 13:35] LABS: Bacteria,Urine Moderate per hpf (None-Few); Hyaline Casts,Urine Moderate per lpf (None-Few); Squamous Epithelial Cell,Urine Many per lpf (None-Few); WBC,Urine 30-50 per hpf (0-3)
[2018-02-28 13:48] LABS: Calcium Oxalate Crystals,Urine Present
[2018-02-28 13:58] LABS: Amphetamine Screen,Urine Negative ng/mL (Cutoff=1000); Barbiturate Screen,Urine Negative ng/mL (Cutoff=200); Benzodiazepines Screen,Urine Negative ng/mL (Cutoff=200); Cannabinoid Screen,Urine Negative ng/mL (Cutoff = 50); Cocaine Screen,Urine Negative ng/mL (Cutoff= 300); Opiate Screen,Urine Negative ng/mL (Cutoff=300); Phencyclidine Screen,Urine Negative ng/mL (Cutoff=25)
--- NOTE | 2018-02-28 15:25 | OB/GYN Progress Note ---
Date of Encounter: 02/28/18 Time of Encounter: 15:15 - Assessment and Plan (1) 33 weeks gestation of Current Visit: Yes Status: Acute IUP FHR 120 Reactive NST No ctxs Urinalysis positive for dehydration IV fluids Vaginosis panel pending Anticipate discharge home with follow up routine care and prn Subjective - Subjective Interval history: at 33 weks and 1 day presents to triage with c/o dark rd blood on underwear and when wiping this morning, burning on urination, back pain and "feeling crampy." PMH positive for kidney stones. Denies leaking fluid, states baby moving well. Denies WATERMAN, visual disturbancs and epigastric pain. States has appointment at [facility] tomorrow. Antepartum ROS: vaginal bleeding, movement normal, no loss of fluid, no contractions Objective - Vital Signs Vital Signs: Intake and Output 02/27/18 02/28/18 02/28/18 23:59 07:59 15:59 Other: Weight 91.3 kg Patient Weight 02/28/18 23:59 Weight 91.3 kg - Exam FHR: category 1 FHR comments: 120, Category 1 Auscultation: bilateral: normal Abdomen: Present: normal appearance, gravid Uterus: Present: normal. Absent: tenderness Comments: Spec exam, no blood noted in vaginal vault. Thin white discharge noted, vaginosis panel obtained. - Labs Labs: Abnormal lab results Urine Clarity Cloudy (Clear) A 02/28/18 13:10 Urine Protein 30 mg/dL (Neg-Trace) H 02/28/18 13:10 Urine Ketones 80 mg/dL (Negative) H 02/28/18 13:10 Ur Leukocyte Esterase Large (Negative) H 02/28/18 13:10 Urine Microscopic RBC 5-15 per hpf (0-3) H 02/28/18 13:10 Urine Microscopic WBC 30-50 per hpf (0-3) H 02/28/18 13:10 Ur Squamous Epith Cells Many per lpf (None-Few) H 02/28/18 13:10 Urine Bacteria Moderate per hpf (None-Few) H 02/28/18 13:10 Hyaline Casts Moderate per lpf (None-Few) H 02/28/18 13:10 Ur Culture Indicated? NO. (NO) A 02/28/18 13:10
[2018-02-28 15:39] LABS: Candida DNA Not Detected (Not Detect); Gardnerella DNA ***DETECTED*** (Not Detect); Trichomonas DNA Not Detected (Not Detect)
[~2018-02-28 16:20] MED LIST changes: -*HR* OxyCODONE Immed Rel 5 MG TABLET PO PRN; -Ondansetron 4 MG/2 ML VIAL IVP PRN; +Ringers Solution, Lactated 1,000 ML ONE; -Ringers Solution, Lactated 500 ML IVC ONE
== END | disposition home or self-care (01) ==
LOC: 1NENULAB
PROVIDERS: ADMIT Student in an Organized Health Care Education/Training Program; ATTEND Student in an Organized Health Care Education/Training Program

== ENCOUNTER 2018-03-18 15:52 | Observation (INO) ==
--- NOTE | 2018-03-18 16:50 | OB/GYN Progress Note ---
Date of Encounter: 03/18/18 Time of Encounter: 16:48 - Assessment and Plan (1) 35 weeks gestation of Current Visit: Yes Status: Acute Follow-up with Dr. Connelly as already scheduled labor precautions given Discharge home (2) Back pain affecting in third trimester Current Visit: Yes Status: Acute Follow-up with ortho as needed Subjective - Subjective Principal diagnosis: dysuria Interval history: Ms. Lomax is a 47-year-old at 35 weeks 5 days gestation who presents with a complaint of a 2 day history of lower back pain and dysuria with intermittent anuria. She endorses good movement and denies vaginal bleeding, contractions, leakage of fluid. She does complain of low back pain that is severely limiting her movement. She reports she was referred to [facility] for consultation and prescribed neurontin, but Dr. Connelly has advised her not to take it. Antepartum ROS: new complaints, movement normal, no loss of fluid, no vaginal bleeding, no contractions Objective - Vital Signs Vital Signs: Intake and Output 03/18/18 03/18/18 03/18/18 07:59 15:59 23:59 Other: Weight 91.5 kg Patient Weight 03/18/18 23:59 Weight 91.5 kg - Exam FHR: category 1 FHR comments: Baseline 140 Moderate variability Accelerations present 15 x 15 No decelerations FHR category I No toco activity Auscultation: bilateral: normal Abdomen: Present: normal appearance, soft, gravid Uterus: Present: normal, firm Cervical dilation: 1 Cervix effacement: thick station: ballottable
[2018-03-18 17:06] LABS: Bilirubin,Urine Negative (Negative); Blood,Urine Negative (Negative); Clarity,Urine Cloudy (Clear); Color,Urine Yellow (Yellow); Glucose,Urine (UA) Normal (Normal); Ketones,Urine 40 mg/dL (Negative); Leukocyte Esterase,Urine Small (Negative); Nitrite,Urine Negative (Negative); PH,Urine 6.5 pH Units (5.0-8.0); Protein,Urine Negative (Neg-Trace); Specific Gravity,Urine 1.015 (1.010-1.025); Urobilinogen,Urine Normal (Normal)
[2018-03-18 17:09] LABS: Bacteria,Urine None Seen per hpf (None-Few); Hyaline Casts,Urine None Seen per lpf (None-Few); Squamous Epithelial Cell,Urine Many per lpf (None-Few)
[2018-03-18 17:13] LABS: Amphetamine Screen,Urine Negative ng/mL (Cutoff=1000); Barbiturate Screen,Urine Negative ng/mL (Cutoff=200); Benzodiazepines Screen,Urine Negative ng/mL (Cutoff=200); Cannabinoid Screen,Urine Negative ng/mL (Cutoff = 50); Cocaine Screen,Urine Negative ng/mL (Cutoff= 300); Opiate Screen,Urine Negative ng/mL (Cutoff=300); Phencyclidine Screen,Urine Negative ng/mL (Cutoff=25)
[2018-03-18] MEDS ORDERED: Gabapentin 300 MG CAPSULE PO ONE (17:17)
== END 2018-03-18 18:10 | disposition home or self-care (01) ==
LOC: 1NENULAB
PROVIDERS: ADMIT Obstetrics & Gynecology; ATTEND Obstetrics & Gynecology

== ENCOUNTER 2018-04-10 05:58 | Inpatient (IN) ==
[2018-04-10] MEDS ORDERED: Metoclopramide 10 MG/2 ML VIAL IVP PRN ×2 (06:31→12:30)
[2018-04-10] MEDS ORDERED: Famotidine 20 MG/2 ML VIAL IVP PRN (06:31)
[2018-04-10] MEDS ORDERED: Naloxone 0.4 MG/ML INJ IVP PRN (06:31)
[2018-04-10] MEDS ORDERED: Ringers Solution, Lactated 1,000 ML ONE (06:37)
[2018-04-10] MEDS ORDERED: Ringers Solution, Lactated 1,000 ML IVC SCH ×2 (06:45→12:30)
[2018-04-10 07:04] LABS: Basophils % 0.2 %; Eosinophils # 0.1 K/mcL (0.0-0.6); Eosinophils % 0.6 %; Hematocrit 32.5 % (35.3-44.9); Hemoglobin 11.4 g/dL (11.5-15.4); Immature Granulocytes % 0.8 % (0-4); Lymphocytes # 1.8 K/mcL (0.6-4.6); Mean Corpuscular HGB Conc 35.1 g/dL (31.6-35.5); Mean Corpuscular Hemoglobin 30.6 pg (28.0-33.3); Mean Corpuscular Volume 87.1 fL (83.0-100.0); Mean Platelet Volume 11.3 fL (9.4-12.4); Monocytes # 0.9 K/mcL (0.0-1.3); Monocytes % 6.7 %; Neutrophils # 10.1 K/mcL (1.6-8.9); Platelet Count 195 K/mcL (140-400); Red Blood Count 3.73 M/mcL (3.82-4.97); Red Cell Distribution Width 14.7 % (11.5-14.5); Segmented Neutrophils % 77.7 %
[2018-04-10 07:24] LABS: Amphetamine Screen,Urine Negative ng/mL (Cutoff=1000); Barbiturate Screen,Urine Negative ng/mL (Cutoff=200); Benzodiazepines Screen,Urine Negative ng/mL (Cutoff=200); Cannabinoid Screen,Urine Negative ng/mL (Cutoff = 50); Cocaine Screen,Urine Negative ng/mL (Cutoff= 300); Opiate Screen,Urine Negative ng/mL (Cutoff=300); Phencyclidine Screen,Urine Negative ng/mL (Cutoff=25)
[2018-04-10] MEDS ORDERED: CeFAZolin Premix DUPLEX 2,000 MG/50 ML BAG IVPB ONE (07:26)
[2018-04-10] MEDS ORDERED: *HR* FentaNYL (PF) 100 MCG/2 ML VIAL ONE (07:31)
[2018-04-10] MEDS ORDERED: *HR* Oxytocin 10 UNIT/ML VIAL IM ONE ×2 (07:31→09:15)
[2018-04-10] MEDS ORDERED: Morphine Sulfate/PF 5mg/10mL Vial ONE (07:31)
[2018-04-10] MEDS ORDERED: *HR* Phenylephrine 10 MG/ML VIAL ONE (07:32)
--- NOTE | 2018-04-10 08:02 | Anesthesia Evaluation PreOp ---
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: Other (L5-S1 radiculopathy continuous pain from herniated disk (/ )) Other Medical History: Renal (stones) Anesthesia History: Past Anesthesia (kidney stone, GB) : Yes () Alcohol Use: none Drug use: none Medications and Allergies Pnv with Ca,No.72/Iron/FA [Pnv Plus Multivit Tab] 1 tab PO DAILY [History] Ferrous Sulfate [Iron] 2 tab PO DAILY 02/05/18 [History] Tylenol 500 mg PO PRN PRN 02/26/18 [History] 3 Allergy/AdvReac Type Severity Reaction Status Date / Time No Known Allergies Allergy Verified 04/10/18 06:42 - Meds/Allergy Pre-op Review Medications Reviewed: Yes Allergies Reviewed: Yes Beta Blockers on Current Med List: No Anesthesia Results - Labs 04/10/18 06:20 Anesthesia Exam O2 Sat Height 1.68 m Weight 91 kg NPO (# of Hours): > 8 hRS Pain Scale: 0 Pain Scale Used: Numeric (1 - 10) - HEENT Pupil (Motor): Pupils equal, EOMI Mallampati: III Teeth: Normal Oral Opening: Greater than 3 - SILICA FILTER OPERATOR LOC: Oriented SILICA FILTER OPERATOR Motor: Normal RUE, Normal LUE, Normal RLE, Normal LLE, Normal Face SILICA FILTER OPERATOR Sensory: Normal: RUE, LUE, RLE, LLE, Face - Cardiac Rhythm: Regular Murmur: None JVD: No Carotid Bruit: No - Pulmonary Breath Sounds: bilateral Clear Respiratory Effort: Symmetrical Anesthesia Assess/Plan ASA Score: 2 Modified Mateus Scale for Level of Consciousness: Cooperative, oriented, and tranquil Anesthetic Plan: Regional (Spinal) Autologous Blood: Yes Monitoring Plan: Standard Monitors Recovery Plan: PACU
--- NOTE | 2018-04-10 08:07 | OB/GYN History & Physical ---
Date of Encounter: 04/10/18 Time of Encounter: 08:00 Assessment and Plan (1) Advanced maternal age during in third trimester Current visit: No Status: Acute 39+ weeks AMA h/o severe degenerative disease with radiculopathy Plan: consent for PC/S with BPS signed History of Present Illness HPI: Ms. Lomax is a 47 year old female who presents to L&D for a scheduled PC/ S. She has a history of severe degenerative spinal disease with radiculopathy. Anesthesia here is not comfortable doing an epidural and they do not recommend that she push in order not to exarcebate her spinal injury. She is scheduled for spinal surgery after delivery in [place]. We counseled her to go to [facility] which she did but then returned and says that she does not want to deliver there. I put in an official consult with Anesthesia and I went into her room with the Anesthesia team to give her the option of going to [facility] but she requests a Primary . No LOF, VB or ctxs, feels good FM. Past Med Surg Social Fam HX - Past Medical History Medical history: kidney stones, other Additional medical history: herniated disk L5. 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 Psychiatric history: no psych history - Past Surgical History Surgical History: breast surgery, cholecystectomy Additional surgical history: L5, kidney stone removal - Social History Smoking Status: Never smoker Smokeless Tobacco Status: No Alcohol use: none Drug use: none - Family History Father Adopted: No Family Member Ethnicity: Non- Living Status: Hx Family Cardiac Disorders: Yes (cardiomyopathy and stroke) Hx Family Respiratory Disorders: No Hx Family Cancer: No Hx Family GI Disorders: No Hx Family Endocrine Disorder: No Hx Family Neuromuscular Disorders: No Hx Family Neurologic Disorders: No Hx Family HEENT Disorders: No Hx Family Autoimmune Disorders: No Hx Family Medical Disorders: Yes (cardiomyopathy and strokes) Obstetrical History - Pregnancies : 4 Para: 3 Medications and Allergies Pnv with Ca,No.72/Iron/FA [Pnv Plus Multivit Tab] 1 tab PO DAILY [History] Ferrous Sulfate [Iron] 2 tab PO DAILY 02/05/18 [History] Tylenol 500 mg PO PRN PRN 02/26/18 [History] 3 Allergy/AdvReac Type Severity Reaction Status Date / Time No Known Allergies Allergy Verified 04/10/18 06:42 Review of System OB All systems PM: reviewed and no additional remarkable complaints except as stated Exam - Constitutional Constitutional: well developed - HEENT HEENT: PERRL - Neck Neck exam: full ROM - Lungs Respiratory exam: CTAB - Cardiovascular Cardiovascular exam: RRR - Abdomen Abdomen: Present: gravid - Extremities Extremities exam: normal inspection Results Result Diagrams: 04/10/18 06:20 Abnormal lab results WBC 13.0 K/mcL (4.3-11.1) H 04/10/18 06:20 RBC 3.73 M/mcL (3.82-4.97) L 04/10/18 06:20 Hgb 11.4 g/dL (11.5-15.4) L 04/10/18 06:20 Hct 32.5 % (35.3-44.9) L 04/10/18 06:20 RDW 14.7 % (11.5-14.5) H 04/10/18 06:20 Neutrophils # 10.1 K/mcL (1.6-8.9) H 04/10/18 06:20 All other labs normal.
--- NOTE | 2018-04-10 08:44 | Anesthesia Procedures ---
Date of Encounter: 04/10/18 Time of Encounter: 08:41 Procedures: Anesthesia - Epidural/Spinal Patient ID/Chart reviewed: Yes Patient examined: Yes OB Eval: Gestational age: 39 OB Eval: : 4 OB Eval: Hx Para: 3 OB Eval: Dilated at (cm): 2 OB Eval: Contractions: Non-stressed pattern Consent Obtained: Yes Supplemental Oxygen: None/Room Air Site Prep: Aseptic Technique, Sterile prep and drape, Povidone-Iodine 1% Patient position: upright Local Anesthetic: Lidocaine 1% (3) Amount of Local Anesthetic used: 3 Interspace Used: L2-L3 Loss of Resistance (MARTINA): No Blood: No CSF: Yes Spinal Needle Gauge: 25 Spinal Dose: marcaine 0.5% 2.5cc, duramorph 0.25,fentanyl 10mcg Procedure: aseptic, chepe well, easy, L2-3, csf x 4 quads, effective
[2018-04-10] MEDS ORDERED: Acetaminophen IV 1,000 MG/100 ML INFUS..BTL IVPB ONE (08:50)
[2018-04-10] MEDS ORDERED: *HR* FentaNYL (PF) 100 MCG/2 ML VIAL IVP PRN (08:50)
[2018-04-10] MEDS ORDERED: *HR* OxyCODONE Immed Rel 5 MG TABLET PO PRN (08:50)
[2018-04-10] MEDS ORDERED: *HR* Promethazine 25 MG/ML VIAL IVP PRN ×2 (09:30→12:30)
--- NOTE | 2018-04-10 09:44 | OB/GYN Procedure Note ---
Section - Date of procedure: 04/10/18 Preop diagnosis: breech, other Post-op diagnosis: same Procedure: primary low transverse, bilateral tubal ligation Surgeon: Giovana Stover Blood Loss: 400 Was there an training and development assistant present: Yes Chief Safety Officer: Suzie Lenz Anesthesia Type: Spinal section complications: none Disposition: L&D Recovery Room Specimens: Placenta, Right tube segment, Left tube segment - Narrative Narrative: After informed consent was obtained, the patient was brought back to the operative suite where adequate spinal anesthesia was obtained. The patient was then placed in the dorsal supine position and prepped and draped in sterile fashion. A Pfannenstiel skin incision was made with a blade and carried down through the subcutaneous tissues to the fascia, which was extended in the transverse fascia. The fascial incision was then dissected off the rectus muscles bluntly. The rectus muscle was in the midline allowing adequate entry into the abdomen with good visualization of the underlying bowel and bladder. The bladder blade was placed, and the vesicouterine fascia was incised to create a bladder flap in a low transverse position. This was developed digitally. A low transverse uterine incision was made with the blade and carried down through the layers of the uterus. The uterine incision was then extended digitally. My hand was placed inside the pelvis, and the feet delivered first with the entire infant delivered atraumatically with gentle fundal pressure. The infant was passed to the awaiting nursing staff for additional care. The cord was doubly clamped and cut. The placenta was then manually extracted. The uterine incision was readily identified and closed in two layers, first one with running locking suture followed by a second imbricating layer of 0 Vicryl. Attention was then focused on the bilateral tubal ligation. A Preet clamp was placed in the mid fallopian tube on the right and elevated. A window was made in the avascular segment of the mesosalpinx. Proximal and distal 0-plain suture ligation with mid fallopian tube transection was performed. This tubal ligation procedure was done in a bilateral fashion. Upon completion of tubal ligation, the fascia was closed with 0-Vicryl. Subcutaneous tissues were copiously irrigated, and final bleeders were cauterized before closure with 3-0 vicryl. The incision was then reapproximated with 4-0 vicryl in a standard fashion. The patient tolerated the procedure well and was taken to the recovery room in stable condition. weight 3000g, breech, APGARS 8/9.
[2018-04-10] MEDS ORDERED: Ondansetron 4 MG/2 ML VIAL IVP PRN ×2 (11:16→12:30)
[2018-04-10] MEDS ORDERED: Simethicone 80 MG TAB.CHEW PO PRN (12:30)
[2018-04-10] MEDS ORDERED: NON-FORMULARY MEDICATION 1 EACH EACH (Pnv With Ca,No.72/Iron/Fa [Pnv Prenatal Plus Multivi PO SCH (12:30)
[2018-04-10] MEDS ORDERED: Sennosides 8.6 MG TABLET PO PRN (12:30)
[2018-04-10] MEDS ORDERED: *HR* Meperidine 25 MG/ML SYRINGE IVP PRN (12:30)
[2018-04-10] MEDS ORDERED: Oxytocin 20 units/ LR 1000 mL 20 UNIT/1,000 ML BAG IVC SCH (12:30)
--- NOTE | 2018-04-10 15:28 | Anesthesia Evaluation Post Op ---
Date of Encounter: 04/10/18 Time of Encounter: 15:26 - Vital Signs Vital Signs: Vital Signs/O2 Sat, Most Current Temp Pulse Resp BP Pulse Ox 97.6 F 53 16 119/71 97 04/10/18 14:20 04/10/18 14:20 04/10/18 14:20 04/10/18 14:20 04/10/18 14:20 - Lungs Lungs: Clear Ascult./Percussion - Airway Airway: Non-obstructed - Cardiovascular Regular Rate - Mental Status Mental Status: Alert & Oriented, Answers Appropriately - Pain Pain Scale: 3 Pain Scale used: Numeric (1 - 10) - Nausea Vomiting Nausea Vomiting: Present - Hydration Hydration: Unable to tolerate oral fluids - Discharge PostOp Status: Transfer Patient to floor (slightly nauseated, minimal pain, VSS )
[2018-04-10] MEDS: Prenatal Vit/FA 1 EACH TABLET PO SCH (15:51)
[2018-04-11] MEDS: Ibuprofen 600 MG TABLET PO PRN ×4 (00:19→22:13)
[2018-04-11 06:01] LABS: Basophils % 0.1 %; Eosinophils # 0.1 K/mcL (0.0-0.6); Eosinophils % 0.3 %; Hematocrit 26.2 % (35.3-44.9); Immature Granulocytes % 0.6 % (0-4); Lymphocytes # 1.6 K/mcL (0.6-4.6); Mean Corpuscular HGB Conc 33.6 g/dL (31.6-35.5); Mean Corpuscular Hemoglobin 29.7 pg (28.0-33.3); Mean Corpuscular Volume 88.5 fL (83.0-100.0); Monocytes % 6.7 %; Neutrophils # 11.7 K/mcL (1.6-8.9); Platelet Count 141 K/mcL (140-400); Red Blood Count 2.96 M/mcL (3.82-4.97); Red Cell Distribution Width 14.9 % (11.5-14.5); Segmented Neutrophils % 81.3 %
[2018-04-11 06:02] LABS: Hemoglobin 8.8 g/dL (11.5-15.4)
[2018-04-11] MEDS: *HR* OxyCODONE/APAP 5/325 TABLET PO PRN ×3 (06:56→21:06)
[2018-04-11] MEDS: Prenatal Vit/FA 1 EACH TABLET PO SCH (08:50)
--- NOTE | 2018-04-11 11:23 | OB/GYN Progress Note ---
Date of Encounter: 04/11/18 Time of Encounter: 11:20 - Assessment and Plan (1) S/P section Current Visit: Yes Status: Acute Stable POD#1 PP anemia will increase iron to BID Continue current management Anticipate discharge tomorrow, (2) anemia Current Visit: Yes Status: Acute increase to BID iron Subjective - Subjective Interval history: Pt states feels well, pain well managed, tolerates diet, voiding without difficulty, bottlefeeding Patient reports: appetite normal, voiding normally, pain well controlled, ambulating normally [place]: doing well Objective - Vital Signs Latest vital signs: Vital Signs Temp Pulse Resp BP Pulse Ox 04/11/18 07:12 97.9 F 70 14 99/52 97 04/11/18 00:11 98.1 F 65 14 101/59 97 04/10/18 20:25 97.7 F 53 14 116/63 100 04/10/18 15:30 97.5 F L 60 16 119/68 97 04/10/18 14:20 97.6 F 53 16 119/71 97 04/10/18 13:00 55 16 115/48 97 04/10/18 12:30 97.5 F L 55 18 112/65 97 04/10/18 12:00 97.9 F 63 104/60 98 Intake and Output 04/10/18 04/11/18 04/11/18 23:59 07:59 15:59 Intake Total 600 / 600 180 / 180 Output Total 400 / 400 200 / 200 Balance 200 / 200 -20 / -20 Intake: Oral 600 / 600 180 / 180 Output: Urine 200 / 200 Catheter 400 / 400 Other: Meal Breakfast Percent of Meal Consumed 70% - Exam Lungs: bilateral: normal Chest: Normal S1, Normal S2 Extremities: Present: normal, tenderness Abdomen: Present: soft Incision: Present: dressed Uterus: Present: firm (at U) - Labs Labs: Laboratory Results - last 24 hr 04/11/18 05:41 WBC 14.4 H RBC 2.96 L Hgb 8.8 L D Hct 26.2 L MCV 88.5 MCH 29.7 MCHC 33.6 RDW 14.9 H Plt Count 141 MPV 11.0 Immature Gran % 0.6 Seg Neutrophils % 81.3 Lymphocytes % 11.0 Monocytes % 6.7 Eosinophils % 0.3 Basophils % 0.1 Neutrophils # 11.7 H Lymphocytes # 1.6 Monocytes # 1.0 Eosinophils # 0.1 Basophils # 0.0
[2018-04-12] MEDS: *HR* OxyCODONE/APAP 5/325 TABLET PO PRN (06:16)
[2018-04-12 07:52] VITALS: BP 106/59
[2018-04-12] MEDS: Prenatal Vit/FA 1 EACH TABLET PO SCH (08:03)
[2018-04-12] MEDS: Ibuprofen 600 MG TABLET PO PRN (08:04)
--- NOTE | 2018-04-12 09:37 | OB/GYN Progress Note ---
Date of Encounter: 04/12/18 Time of Encounter: 09:35 - Assessment and Plan (1) S/P section Current Visit: Yes Status: Acute 1. Patient to be discharged home with precautions at 48 hour S/P . Patient states that she will followup with spinal surgery for the management of chronic degenerative disk disease once cleared by Dr. Gilbert. 2. Pt. states that she has run out of gabapentin for the home management of her chronic pain. Pt. instructed to followup with pain clinic for continuation of this medication. Pt. informed of risks of taking Percocet + Gabapenin and states that she has home support for the care of her while on these medications. 3. Patient to receive iron prescription for home-care for the management of anemia. The patient is in agreement with this plan and understands the stated precautions. Subjective - Subjective Principal diagnosis: S/P at 39+ weeks Interval history: Patient admits to continued back pain with radiculopathy into her left leg. Patient states that this pain is exacerbated by movement and makes ambulation difficult. The patient admits to chest "heaviness" but feels that this is positional in nature from laying in bed. The patient denies shortness of breath , headache, or vision changes. The patient is afebrile, non-tachypnic, non-tachycardic, non-diaphoretic Patient reports: appetite normal, voiding normally, pain well controlled, other (Difficulty with ambulation d/t chronic degenerative disk disease ) [place]: doing well, bottle feeding Objective - Latest Vital Signs Latest vital signs: Vital Signs Temp Pulse Resp BP Pulse Ox 04/12/18 07:51 98.2 F 76 14 106/59 98 04/11/18 19:45 98.5 F 67 14 110/65 98 Intake and Output 04/11/18 04/12/18 04/12/18 23:59 07:59 15:59 Intake Total 120 / 120 Output Total 600 / 600 Balance -480 / -480 Intake: Oral 120 / 120 Output: Urine 600 / 600 Other: Meal Breakfast Percent of Meal Consumed 50% Weight 90.5 kg Patient Weight 04/12/18 23:59 Weight 90.5 kg - Exam Lungs: bilateral: normal Chest: Normal S1, Normal S2 Extremities: Present: normal Abdomen: Present: soft, tenderness (Diffuse moderate tenderness noted to palpation ). Absent: rigidity, distention Uterus: Present: normal, firm Uterus Position: 1 Finger Below Umbilicus
--- NOTE | 2018-04-12 09:55 | Discharge Summary ---
Date of Encounter: 04/12/18 Time of Encounter: 09:53 - Discharge Diagnosis (1) S/P section Priority: Primary Status: Acute - Discharge Medications Prescriptions: Ibuprofen [Motrin] 600 mg PO Q6HR PRN #30 tablet PRN Reason: Cramping OxyCODONE/APAP 5/325 [Percocet 5/325 MG] 1 each PO Q6HR PRN 5 Days #21 tablet PRN Reason: Moderate pain 4-6 Docusate [Colace] 100 mg PO BID #20 capsule Ferrous Sulfate 325 mg PO BIDWM #120 tablet Home Medications: Pnv with Ca,No.72/Iron/FA [Pnv Plus Multivit Tab] 1 tab PO DAILY [History] Tylenol 500 mg PO PRN PRN 02/26/18 [History] Docusate [Colace] 100 mg PO BID #20 capsule 04/12/18 [Rx] Ferrous Sulfate 325 mg PO BIDWM #120 tablet 04/12/18 [Rx] Ibuprofen [Motrin] 600 mg PO Q6HR PRN #30 tablet 04/12/18 [Rx] OxyCODONE/APAP 5/325 [Percocet 5/325 MG] 1 each PO Q6HR PRN 5 Days #21 tablet [Rx] Simethicone [Gas-X] 80 mg PO TID PRN tab.chew 04/12/18 [Rx] Allergies/Adverse Reactions: 3 Allergy/AdvReac Type Severity Reaction Status Date / Time No Known Allergies Allergy Verified 04/10/18 06:42 Data Procedures and tests throughout hospitalization: Laboratory Tests 04/10/18 04/10/18 04/11/18 06:20 06:50 05:41 WBC 13.0 H 14.4 H RBC 3.73 L 2.96 L Hgb 11.4 L 8.8 L D Hct 32.5 L 26.2 L MCV 87.1 88.5 MCH 30.6 29.7 MCHC 35.1 33.6 RDW 14.7 H 14.9 H Plt Count 195 141 MPV 11.3 11.0 Immature Gran % 0.8 0.6 Seg Neutrophils % 77.7 81.3 Lymphocytes % 14.0 11.0 Monocytes % 6.7 6.7 Eosinophils % 0.6 0.3 Basophils % 0.2 0.1 Neutrophils # 10.1 H 11.7 H Lymphocytes # 1.8 1.6 Monocytes # 0.9 1.0 Eosinophils # 0.1 0.1 Basophils # 0.0 0.0 Urine Opiates Screen Negative Ur Barbiturates Screen Negative Ur Phencyclidine Scrn Negative Ur Amphetamines Screen Negative U Benzodiazepines Scrn Negative Urine Cocaine Screen Negative U Marijuana (THC) Screen Negative Ur Drug Screen Interp See Below - Impressions Review of systems: Patient admits to continued back pain with radiculopathy into the left lower extremity. Patient complains of some chest "heavines", but believes that this is positionally-related due to laying in bed. Patient is afebrile, denies shortness of breath, headache, or vision change. She is non-tachypnic, non-tachycardic, not diaphoretic. Plan: 1. Patient to be discharged home with precautions at 48 hour S/P . Patient states that she will followup with spinal surgery for the management of chronic degenerative disk disease once cleared by Dr. Gilbert. 2. Pt. states that she has run out of gabapentin for the home management of her chronic pain. Pt. instructed to followup with pain clinic for continuation of this medication. Pt. informed of risks of taking Percocet + Gabapenin and states that she has home support for the care of her while on these medications. 3. Patient to receive iron prescription for home-care for the management of anemia. The patient is in agreement with this plan and understands the stated precautions. Date of admission: 04/10/18 05:58 Primary care physician: PCP NONE Discharging clinician: Jessica Aranda Anticipated date of discharge: 04/12/18 - Patient Status Disposition: Home, Self-Care Condition: Good Functional capacity at discharge: independent ambulation Overall status at discharge: patient is progressing back to baseline - Discharge Instructions Follow Up With: NONE,PCP [Primary Care Provider] - Giovana Connelly MD [Partnered Physician] - - Diet and Activity Activity: increase activity as tolerated Diet: advance to your usual diet Hospital Course Reason for admission: section Delivery: section Episiotomy: none Laceration: none Other procedures: none complications: none Discharge diagnosis: IUP at term delivered baby: female Time Attestation: Total time spent providing and/or coordinating discharge services: Time Spent: Less than 30 minutes - VTE Documentation of Mechanical Device: Intermittent pneumatic compression device Exam - Constitutional Vitals: Temp Pulse Resp BP Pulse Ox 98.2 F 76 14 106/59 98 04/12/18 07:51 04/12/18 07:51 04/12/18 07:51 04/12/18 07:51 04/12/18 07:51 General appearance IM: cooperative, A&O X 3, pleasant, no acute distress, answers questions appropriately - Respiratory Respiratory exam: Present: CTAB. Absent: accessory muscle use, decreased breath sounds, prolonged expiratory phase, rales, respiratory distress, rhonchi , stridor, wheezes, tachypnea - Cardiovascular Cardiovascular exam IM: Present: RRR, +S1, +S2. Absent: gallop, JVD, rubs, +S3 , +S4, systolic murmur, tachycardia - GI/Abdominal GI/Abdominal exam IM: tenderness Incision: normal, dry, intact, warm, dressed - Uterine Tone: Firm Uterus Position: 1 Finger Below Umbilicus, Midline - Extremities Exam Extremities exam IM: Present: normal capillary refill, normal inspection, radial pulses palpable and symmetrical - Neurological Exam Neurological exam: alert, oriented X3, no focal deficits
== END 2018-04-12 12:44 | disposition home or self-care (01) | DRG 766 ==
LOC: 1NENULAB 05:58 → 1NENUOBS 12:28
PROVIDERS: ADMIT Student in an Organized Health Care Education/Training Program; ATTEND Student in an Organized Health Care Education/Training Program

== ENCOUNTER 2018-04-16 19:20 | Observation (INO) ==
[2018-04-16] MEDS ORDERED: GI Cocktail 40 ML EACH PO ONE (19:44)
[2018-04-16] MEDS ORDERED: *HR* OxyCODONE Immed Rel 5 MG TABLET PO STA (19:45)
[2018-04-16 20:19] LABS: Basophils # 0.1 K/mcL (0.0-0.2); Basophils % 0.5 %; Eosinophils # 0.2 K/mcL (0.0-0.6); Hematocrit 29.2 % (35.3-44.9); Immature Granulocytes % 1.4 % (0-4); Lymphocytes # 1.8 K/mcL (0.6-4.6); Lymphocytes % 17.4 %; Mean Corpuscular HGB Conc 34.2 g/dL (31.6-35.5); Mean Corpuscular Hemoglobin 30.4 pg (28.0-33.3); Mean Corpuscular Volume 88.8 fL (83.0-100.0); Mean Platelet Volume 10.2 fL (9.4-12.4); Monocytes # 0.7 K/mcL (0.0-1.3); Monocytes % 7.2 %; Neutrophils # 7.2 K/mcL (1.6-8.9); Platelet Count 233 K/mcL (140-400); Red Blood Count 3.29 M/mcL (3.82-4.97); Red Cell Distribution Width 13.8 % (11.5-14.5); Segmented Neutrophils % 71.5 %
[2018-04-16 20:38] LABS: BUN/Creatinine Ratio 22 (6-26); Blood Urea Nitrogen 13 mg/dL (6-20); Calcium 8.6 mg/dL (8.6-10.3); Carbon Dioxide 24 mEq/L (23-29); Chloride 109 mEq/L (98-107); Glucose 99 mg/dL (70-105); Osmolality,Calculated 294 (280-300); Sodium 142 mEq/L (136-145); eGFR For Non-African Americans > 60 (> 60)
[2018-04-16 20:38] LABS: Albumin 3.4 g/dL (3.5-5.7); Albumin/Globulin Ratio 1.4 (1.1-2.2); Bilirubin,Indirect 0.4 mg/dL (0.0-1.2); Bilirubin,Total 0.4 mg/dL (0.3-1.0); Globulin 2.5 g/dL (2.4-3.5); Total Protein 5.9 g/dL (6.4-8.9)
[2018-04-16 20:39] LABS: Troponin I < 0.03 ng/mL (< 0.04)
[2018-04-16] MEDS ORDERED: Isovue-370 500 ML INFUS..BTL IV ONE ×2 (20:45→20:48)
--- NOTE | 2018-04-16 20:56 | Emergency Department Note ---
Disposition Clinical Impression: Abnormal chest CT, Weakness, Peripheral edema Disposition: Admitted As Inpatient Condition: Good Forms: ED Satisfaction Letter General Adult HPI - General Chief complaint: ED Chest Pain Stated complaint: chest pain into back Time Seen by Provider: 04/16/18 19:33 Source: patient Mode of arrival: ambulatory Limitations: no limitations Nursing Notes Reviewed: Yes Vital Signs Reviewed: Yes - History of Present Illness HPI Narrative: Patient presents today for evaluation of left-sided chest pain. She states that she had a approximately 3 days ago. The patient states that she was mildly anemic. She has been having fatigue. She developed left-sided chest pain today that was in the area of the left breast that radiates to the back. Worse with inspiration. She states that she is had increased swelling of her extremities as well as epigastric pain and lower abdominal pain. Epigastric pain is worse with foods. It makes her mildly nauseous. Lower abdominal pain she believes is likely secondary to the surgery. She has mild tenderness to the right lower quadrant region. Pain Scale: 5 - Related Data Home Medications Medication Instructions Recorded Confirmed Pnv with Ca,No.72/Iron/FA [Pnv 1 tab PO DAILY 09/03/17 04/10/18 Plus Multivit Tab] Tylenol 500 mg PO PRN PRN 02/26/18 04/10/18 Previous Rx's Medication Instructions Recorded Docusate [Colace] 100 mg PO BID #20 capsule 04/12/18 Ferrous Sulfate 325 mg PO BIDWM #120 tablet 04/12/18 Ibuprofen [Motrin] 600 mg PO Q6HR PRN #30 tablet 04/12/18 OxyCODONE/APAP 5/325 [Percocet 1 each PO Q6HR PRN 5 Days #21 04/12/18 5/325 MG] tablet Simethicone [Gas-X] 80 mg PO TID PRN tab.chew 04/12/18 Allergies Allergy/AdvReac Type Severity Reaction Status Date / Time No Known Allergies Allergy Verified 04/10/18 06:42 Review of Systems: CONSTITUTIONAL: Generalized weakness and fatigue No weight loss, fever, chills HEENT: Eyes: No visual changes. Ears, Nose, Throat: No hearing loss, difficulty talking or unable to swallow. SKIN: No rash or itching. CARDIOVASCULAR: Left-sided chest pain that radiates to the back RESPIRATORY: No shortness of breath, cough or sputum. GASTROINTESTINAL: Abdominal pain with nausea that is worse with foods. No vomiting or diarrhea. GENITOURINARY: No burning on urination or hematuria. NEUROLOGICAL: Dizziness with standing No headache, syncope, paralysis, ataxia, numbness or tingling in the extremities. No change in bowel or bladder control. MUSCULOSKELETAL: No muscle pain, back pain, joint pain or stiffness. Past Medical History - Past Medical History Medical history: Reports: kidney stones, other Surgical history: Reports: breast surgery, cholecystectomy Psychiatric history: Reports: no psych history ADMITTING CLERK history: Reports: no ADMITTING CLERK history - Social History Smoking Status: Never smoker Smokeless Tobacco Status: No Alcohol use: Reports: none Drug use: Reports: none Physical Exam General: Well appearing, nontoxic, no acute distress Head: Normocephalic Atraumatic Eyes: PERRL, EOMI ENT: Airway patent, no stridor Neck: supple, no meningismus Chest: Lungs clear to auscultation bilateral Cardiac: Regular rhythm Abdomen: site without erythema. Mild tenderness to the right side. Patient also has mild tenderness to epigastric region. There is no rebound or guarding to any of her abdominal pain. Musculoskeletal: +1 pitting edema throughout the feet into the lower calves. Skin: No rash, normal skin tone Neuro: Alert and Oriented to person, place, and time; No focal deficit, Course - Reevaluation(s) Reevaluation #1: Symptoms initially per improved with GI cocktail. Patient's epigastric pain is likely related to gastritis versus early peptic ulcer disease. Her d-dimer was found to be elevated. She will undergo further CTA testing. We will continue to scan into her abdomen and pelvis secondary to the abdominal pain. Reevaluation #2: Patient CTA does not show pulmonary embolus but does show mildly dilated cardiac chambers and the concerns for some mild pulmonary edema. Patient also has peripheral edema. Concern for hypertrophic cardiomyopathy. We will discuss with cardiology. Reevaluation #3: After discussing with cardiology and given the fact she is bradycardic. She will undergo further admission and cardiac workup. - Consultations Consultation #1: Discussed cardiology. Concern for hypertrophic cardiomyopathy. Admit for further evaluation. Consultation #2: Discussed with hospitalist. Patient accepted for admission. Vital Signs Temperature 98.4 F 04/16/18 19:25 Pulse Rate 54 04/16/18 19:25 Respiratory Rate 18 04/16/18 19:25 Blood Pressure 142/60 04/16/18 19:25 O2 Sat by Pulse Oximetry 97 04/16/18 19:25 Temperature 98.4 F 04/16/18 19:25 Pulse Rate 52 04/16/18 22:29 Respiratory Rate 16 04/16/18 22:29 Blood Pressure 101/62 04/16/18 22:29 O2 Sat by Pulse Oximetry 99 04/16/18 22:29 Oxygen Delivery Oxygen Delivery Room Air Medical Decision Making - Medical Records Medical records reviewed: Yes I reviewed the patient's medical records. - Lab Data Lab results reviewed: Yes I reviewed the patient's lab results. Result diagrams: 04/16/18 19:43 04/16/18 19:43 Lab Results 04/16/18 04/16/18 04/16/18 Range/Units 19:43 19:43 19:44 WBC 10.0 (4.3-11.1) K/mcL RBC 3.29 L (3.82-4.97) M/mcL Hgb 10.0 L (11.5-15.4) g/dL Hct 29.2 L (35.3-44.9) % MCV 88.8 (83.0-100.0) fL MCH 30.4 (28.0-33.3) pg MCHC 34.2 (31.6-35.5) g/dL RDW 13.8 (11.5-14.5) % Plt Count 233 D (140-400) K/mcL MPV 10.2 (9.4-12.4) fL Immature Gran % 1.4 (0-4) % Seg Neutrophils % 71.5 % Lymphocytes % 17.4 % Monocytes % 7.2 % Eosinophils % 2.0 % Basophils % 0.5 % Neutrophils # 7.2 (1.6-8.9) K/mcL Lymphocytes # 1.8 (0.6-4.6) K/mcL Monocytes # 0.7 (0.0-1.3) K/mcL Eosinophils # 0.2 (0.0-0.6) K/mcL Basophils # 0.1 (0.0-0.2) K/mcL D-Dimer (0-500) ng/mLFEU Sodium 142 (136-145) mEq/L Potassium 3.0 L (3.5-5.1) mEq/L Chloride 109 H (98-107) mEq/L Carbon Dioxide 24 (23-29) mEq/L BUN 13 (6-20) mg/dL Creatinine 0.60 (0.60-1.20) mg/dL Est GFR ( Amer) > 60 (> 60) Est GFR (Non-Af Amer) > 60 (> 60) BUN/Creatinine Ratio 22 (6-26) Glucose 99 (70-105) mg/dL Calculated Osmolality 294 (280-300) Calcium 8.6 (8.6-10.3) mg/dL Total Bilirubin 0.4 (0.3-1.0) mg/dL Direct Bilirubin 0.0 (0.0-0.2) mg/dL Indirect Bilirubin 0.4 (0.0-1.2) mg/dL AST 16 (13-39) Units/L ALT 14 (7-52) Units/L Alkaline Phosphatase 85 (34-104) Units/L Troponin I < 0.03 (< 0.04) ng/mL Serum Total Protein 5.9 L (6.4-8.9) g/dL Albumin 3.4 L (3.5-5.7) g/dL Globulin 2.5 (2.4-3.5) g/dL Albumin/Globulin Ratio 1.4 (1.1-2.2) Lipase 9 L (11-82) Units/L Urine Color (Yellow) Urine Clarity (Clear) Urine pH (5.0-8.0) pH Units Ur Specific [place] (1.010-1.025) Urine Protein (Neg-Trace) mg/dL Urine Glucose (UA) (Normal) mg/dL Urine Ketones (Negative) mg/dL Urine Blood (Negative) Urine Nitrite (Negative) Urine Bilirubin (Negative) Urine Urobilinogen (Normal) mg/dL Ur Leukocyte Esterase (Negative) Urine Microscopic RBC (0-3) per hpf Urine Microscopic WBC (0-3) per hpf Ur Squamous Epith Cells (None-Few) per lpf Urine Bacteria (None-Few) per hpf Hyaline Casts (None-Few) per lpf Ur Culture Indicated? (NO) 04/16/18 04/16/18 Range/Units 19:57 22:12 WBC (4.3-11.1) K/mcL RBC (3.82-4.97) M/mcL Hgb (11.5-15.4) g/dL Hct (35.3-44.9) % MCV (83.0-100.0) fL MCH (28.0-33.3) pg MCHC (31.6-35.5) g/dL RDW (11.5-14.5) % Plt Count (140-400) K/mcL MPV (9.4-12.4) fL Immature Gran % (0-4) % Seg Neutrophils % % Lymphocytes % % Monocytes % % Eosinophils % % Basophils % % Neutrophils # (1.6-8.9) K/mcL Lymphocytes # (0.6-4.6) K/mcL Monocytes # (0.0-1.3) K/mcL Eosinophils # (0.0-0.6) K/mcL Basophils # (0.0-0.2) K/mcL D-Dimer 2283 H (0-500) ng/mLFEU Sodium (136-145) mEq/L Potassium (3.5-5.1) mEq/L Chloride (98-107) mEq/L Carbon Dioxide (23-29) mEq/L BUN (6-20) mg/dL Creatinine (0.60-1.20) mg/dL Est GFR ( Amer) (> 60) Est GFR (Non-Af Amer) (> 60) BUN/Creatinine Ratio (6-26) Glucose (70-105) mg/dL Calculated Osmolality (280-300) Calcium (8.6-10.3) mg/dL Total Bilirubin (0.3-1.0) mg/dL Direct Bilirubin (0.0-0.2) mg/dL Indirect Bilirubin (0.0-1.2) mg/dL AST (13-39) Units/L ALT (7-52) Units/L Alkaline Phosphatase (34-104) Units/L Troponin I (< 0.04) ng/mL Serum Total Protein (6.4-8.9) g/dL Albumin (3.5-5.7) g/dL Globulin (2.4-3.5) g/dL Albumin/Globulin Ratio (1.1-2.2) Lipase (11-82) Units/L Urine Color Yellow (Yellow) Urine Clarity Clear (Clear) Urine pH 6.0 (5.0-8.0) pH Units Ur Specific [place] > 1.030 H (1.010-1.025) Urine Protein Trace (Neg-Trace) mg/dL Urine Glucose (UA) Normal (Normal) mg/dL Urine Ketones Negative (Negative) mg/dL Urine Blood Moderate H (Negative) Urine Nitrite Negative (Negative) Urine Bilirubin Negative (Negative) Urine Urobilinogen Normal (Normal) mg/dL Ur Leukocyte Esterase Moderate H (Negative) Urine Microscopic RBC 5-15 H (0-3) per hpf Urine Microscopic WBC 15-30 H (0-3) per hpf Ur Squamous Epith Cells Many H (None-Few) per lpf Urine Bacteria None Seen (None-Few) per hpf Hyaline Casts Moderate H (None-Few) per lpf Ur Culture Indicated? NO. A (NO) - Radiology Data Radiology results reviewed: Yes I reviewed the patient's radiology results. - EKG Data EKG #1 EKG attestation: Yes I reviewed and interpreted this EKG. EKG results narrative: EKG shows sinus bradycardia with ventricular rate of 53. ID interval 133. QRS 94. QTC 443. Patient has no significant ST elevations or depressions. No previous EKG for comparison.
[2018-04-16 22:22] LABS: Bilirubin,Urine Negative (Negative); Blood,Urine Moderate (Negative); Clarity,Urine Clear (Clear); Color,Urine Yellow (Yellow); Glucose,Urine (UA) Normal (Normal); Ketones,Urine Negative (Negative); Leukocyte Esterase,Urine Moderate (Negative); Nitrite,Urine Negative (Negative); Protein,Urine Trace mg/dL (Neg-Trace); Specific Gravity,Urine > 1.030 (1.010-1.025); Urobilinogen,Urine Normal (Normal)
[2018-04-16 22:23] LABS: Bacteria,Urine None Seen per hpf (None-Few); Hyaline Casts,Urine Moderate per lpf (None-Few); Squamous Epithelial Cell,Urine Many per lpf (None-Few); WBC,Urine 15-30 per hpf (0-3)
[2018-04-16] MEDS ORDERED: Furosemide 20 MG/2 ML VIAL IVP ONE (22:58)
[2018-04-16] MEDS ORDERED: Naloxone 0.4 MG/ML INJ IVP PRN (23:56)
[2018-04-16] MEDS ORDERED: Ibuprofen 400 MG TABLET PO PRN (23:56)
[2018-04-16] MEDS ORDERED: *HR* HYDROcodone/Acet 5/325 mg TABLET PO PRN (23:56)
[2018-04-16] MEDS ORDERED: *HR* OxyCODONE Immed Rel 5 MG TABLET PO PRN (23:56)
--- NOTE | 2018-04-17 00:04 | Internal Med History&Physical ---
<Jim Bowers - Last Filed: 04/17/18 01:00> Date of Encounter: 04/17/18 Time of Encounter: 00:03 Internal Medicine - H&P: HPI Chief complaint: Epigastric pain, LE swelling Admitted From: Emergency Dept History of present illness: Ms. Lomax is a 47 year old female with a PMHx of GERD presents to ED with a complaint of chest pain, LE swelling. She recently had an uneventful 2 days ago. She states that the was uncomplicated. She describes the chest pain was located in the left chest with radiation to the back between the scapulas. It started intermittent but has gotten progressively worse since sunday and is not constant. It had no preceding factors and no exacerbating or reliving factors. Non exertional, non reproducible. She admits to some associated SOB on exertion which she has had since early in her . LE edema since sunday as well although she has had some since her . Also admitted to abdominal pain which is sharp and non radiating. No associated nausea vomiting, diarrhea. She does state she has a history of reflux but has not been taking her omeprazole during . She is also noticed some shortness of breath on exertion since early in her and discussed this with her MEDICARE SPECIALIST who stated that this was normal. She denies any symptoms of fevers, chills, systemic illness, recent illness, incision erythema or drainage. In the ED, vitals significant for recent bout of bradycardia with heart rate in the 40s and 50s. Vitals otherwise unremarkable. EKG was obtained and showed sinus bradycardia without evidence of ST changes, interval changes, significant heart enlargement. Labs are significant for H/H of 10.0/29.2 which is improved from April 11 lab results. Potassium was mildly low at 3.0 and has since been replaced emergency department. BNP also elevated at 261, urinalysis contaminated with less likely sinus infection and d-dimer was also elevated at 2283, troponin was negative. CT of the chest was obtained due to concern for pulmonary embolism and showed no evidence of PE, mild cardiac chamber enlargement, questionable pulmonary edema and CT of the abdomen showed heterogeneous pelvic findings suggestive of possible postsurgical changes, inflammation but could not rule out endometritis. Of note, patient's chest pain and epigastric pain did resolve after administration of a GI cocktail. Past medical history as above Past surgical history negative except for section Social history negative for smoking, alcohol use, drug use Family history significant for cardiomyopathy in her father, multiple aneurysms in her mother, atrial fibrillation in her mother. Past Med Surg Social Fam HX - Past Medical History Medical history: kidney stones, other Additional medical history: herniated disk L5. 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 Psychiatric history: no psych history - Past Surgical History Surgical History: breast surgery, cholecystectomy Additional surgical history: L5, kidney stone removal - Social History Smoking Status: Never smoker Smokeless Tobacco Status: No Alcohol use: none Drug use: none - Family History Father Adopted: No Family Member Ethnicity: Non- Living Status: Hx Family Cardiac Disorders: Yes (cardiomyopathy and stroke) Hx Family Respiratory Disorders: No Hx Family Cancer: No Hx Family GI Disorders: No Hx Family Endocrine Disorder: No Hx Family Neuromuscular Disorders: No Hx Family Neurologic Disorders: No Hx Family HEENT Disorders: No Hx Family Autoimmune Disorders: No Internal Medicine - H&P: Meds Pnv with Ca,No.72/Iron/FA [Pnv Plus Multivit Tab] 1 tab PO DAILY [History] Tylenol 500 mg PO PRN PRN 02/26/18 [History] Docusate [Colace] 100 mg PO BID #20 capsule 04/12/18 [Rx] Ferrous Sulfate 325 mg PO BIDWM #120 tablet 04/12/18 [Rx] Ibuprofen [Motrin] 600 mg PO Q6HR PRN #30 tablet 04/12/18 [Rx] OxyCODONE/APAP 5/325 [Percocet 5/325 MG] 1 each PO Q6HR PRN 5 Days #21 tablet [Rx] Simethicone [Gas-X] 80 mg PO TID PRN tab.chew 04/12/18 [Rx] 3 Allergy/AdvReac Type Severity Reaction Status Date / Time No Known Allergies Allergy Verified 04/10/18 06:42 All Systems PM: A 10-system review of systems was performed and is negative for pertinent findings except as documented above in the HPI. - Constitutional Constitutional: no chills, no fever(s) - Cardiovascular Cardiovascular ROS IM: chest pain, dyspnea, dyspnea on exertion, edema, no lightheadedness, no orthopnea, no palpitations, no paroxysmal nocturnal dyspnea , no syncope - Respiratory Respiratory: dyspnea, dyspnea on exertion, no cough, no hemoptysis - Gastrointestinal Gastrointestinal: abdominal pain, nausea, no constipation, no diarrhea, no dyspepsia, no loose stools, no vomiting - Genitourinary Genitourinary: no dysuria - Integumentary Integumentary IM: no erythema, no rash - Constitutional Vitals: Temp Pulse Resp BP Pulse Ox 98.4 F 45 18 111/62 99 04/16/18 19:25 04/16/18 23:32 04/16/18 23:32 04/16/18 23:32 04/16/18 23:32 Internal Med - H&P Results - Labs CBC & Chem 7: 04/16/18 19:43 04/16/18 19:43 - Assessment and plan (1) Chest pain Current Visit: Yes Status: Acute Assessment and plan: -Unclear etiology at this time however disoriented has resolved - Possibly secondary to gastroesophageal reflux, patient has not been taking omeprazole significant - Resolved after GI cocktail - Troponin negative, EKG shows sinus bradycardia - CTA obtained emergency department to rule out pulmonary embolism as d-dimer was elevated. Showed no evidence of thrombosis or did show mild cardiac chamber enlargement and possible pulmonary edema Plan - Repeat troponin with AM labs - Start omeprazole 20 mg twice a day, patient's home dose - Echocardiogram as below - Mild hypokalemia at 3.0 on presentation, replenished in ED - Magnesium with am labs Qualifiers: Chest pain type: unspecified Qualified Code(s): R07.9 - Chest pain, unspecified (2) cardiomyopathy Current Visit: Yes Status: Suspected Assessment and plan: - Suspected cardiomyopathy and CT scan findings - Signs of volume overload including lower extremity edema, periportal edema, shortness of breath - Family history of cardiomyopathy in father - Recent with reportedly 2 days ago - Given Lasix 20 mg IV in emergency department - BNP mildly elevated 261 plan - Obtain echocardiogram - We will monitor volume status with Lasix in NAD - TSH ordered - May be related to hormonal changes, will obtain echocardiogram and not consult cardiology at this time until findings are known (3) anemia Current Visit: Yes Status: Chronic Assessment and plan: - H/H of 10.0/29.2 - Hemoglobin known to be 8.8 on admission and this improved - No obvious signs of bleeding however on CT scan there was some heterogeneous material and deep pelvis. - We will continue to monitor and transfuse as necessary however is not indicated at this time (4) Abnormal chest CT Current Visit: Yes Status: Acute Assessment and plan: - As above. Shows evidence of mild cardiac chamber enlargement. Heterogeneous pelvic findings suggestive of possible postsurgical changes, mild inflammation could not rule out endometritis. Patient states her abdominal pain is controlled at this time and is having no systemic symptoms. She is afebrile with no WBC elevation. Will continue monitor this time (5) Peripheral edema Current Visit: Yes Status: Acute Assessment and plan: As above possibly secondary new onset congestive heart failure in the setting of cardiomyopathy. We will await the results of echo. She was given 20 mg of Lasix IV in emergency department. (6) GERD (gastroesophageal reflux disease) Current Visit: Yes Status: Chronic Assessment and plan: Reported reflux however patient has not been taking her PPI secondary to We will resume PPI GI cocktail very effective in emergency department with resolution of symptoms Qualifiers: Esophagitis presence: esophagitis presence not specified Qualified Code(s) : K21.9 - Gastro-esophageal reflux disease without esophagitis (7) DVT prophylaxis Current Visit: Yes Status: Acute Assessment and plan: Heparin 5000 units every 12 hours (8) Hypokalemia Current Visit: Yes Status: Acute Assessment and plan: Potassium is 3.0 on admission Given 40 mEq of replacement emergency room Will recheck with a.m. labs and check magnesium at that time EKG shows no changes - Time Spent With Patient Total time spent is greater than 50% in coordination of care (as documented) at patient's floor/unit and/or counseling patient: <Isaias Weathers - Last Filed: 04/17/18 01:36> Date of Encounter: 04/17/18 Internal Medicine - H&P: HPI History of present illness: Ms. Lomax is a 47 year old female All Systems PM: A 10-system review of systems was performed and is negative for pertinent findings except as documented above in the HPI. - Constitutional Vitals: Temp Pulse Resp BP Pulse Ox 98.2 F 44 14 137/66 98 04/17/18 00:20 04/17/18 00:20 04/17/18 00:20 04/17/18 00:20 04/17/18 00:20 Internal Med - H&P Results - Labs CBC & Chem 7: 04/16/18 19:43 04/16/18 19:43 - Attending Attestation I have seen and examined the patient with Dr. Bowers and agree with his/ her assessment and plan. 47-year-old female who recently had presented to the ED with left-sided chest pain associated with generalized weakness and lower limb swelling. She had a CT scan which was negative for pulmonary embolism or aortic dissection but it instead showed signs of mild cardiac chamber enlargement. There was also a finding consistent with pulmonary edema and periportal edema which are likely related to fluid overload. On physical exam, she is afebrile and hemodynamically stable, not requiring any oxygen supplementation. 2+ LE edema up to mid shins. At time of examination, she was already given a dose of IV Lasix 20 mg. We will get echocardiogram to evaluate for stability of peripartum cardiomyopathy. Isaias Weathers MD - Assessment and plan (1) DVT prophylaxis Current Visit: Yes Status: Acute (2) anemia Current Visit: Yes Status: Chronic (3) Abnormal chest CT Current Visit: Yes Status: Acute (4) Peripheral edema Current Visit: Yes Status: Acute (5) GERD (gastroesophageal reflux disease) Current Visit: Yes Status: Chronic Qualifiers: Esophagitis presence: esophagitis presence not specified Qualified Code(s) : K21.9 - Gastro-esophageal reflux disease without esophagitis (6) cardiomyopathy Current Visit: Yes Status: Suspected (7) Chest pain Current Visit: Yes Status: Acute Qualifiers: Chest pain type: unspecified Qualified Code(s): R07.9 - Chest pain, unspecified (8) Hypokalemia Current Visit: Yes Status: Acute - Time Spent With Patient Total time spent is greater than 50% in coordination of care (as documented) at patient's floor/unit and/or counseling patient:
[2018-04-17 04:15] LABS: Basophils % 0.3 %; Eosinophils # 0.2 K/mcL (0.0-0.6); Hematocrit 26.2 % (35.3-44.9); Hemoglobin 8.9 g/dL (11.5-15.4); Immature Granulocytes % 0.9 % (0-4); Lymphocytes % 22.9 %; Mean Corpuscular Hemoglobin 29.7 pg (28.0-33.3); Mean Corpuscular Volume 87.3 fL (83.0-100.0); Mean Platelet Volume 10.5 fL (9.4-12.4); Monocytes # 0.8 K/mcL (0.0-1.3); Neutrophils # 5.7 K/mcL (1.6-8.9); Platelet Count 210 K/mcL (140-400); Red Cell Distribution Width 13.8 % (11.5-14.5); Segmented Neutrophils % 64.9 %
[2018-04-17 04:49] LABS: BUN/Creatinine Ratio 18 (6-26); Blood Urea Nitrogen 12 mg/dL (6-20); Calcium 8.3 mg/dL (8.6-10.3); Carbon Dioxide 28 mEq/L (23-29); Chloride 108 mEq/L (98-107); Chol/HDL Ratio 3.4 (0-4.9); Cholesterol 169 mg/dL (< 200); Glucose 96 mg/dL (70-105); HDL Cholesterol 49 mg/dL (40-59); LDL Cholesterol,Calculated 84 mg/dL (0-99); Magnesium 1.9 mg/dL (1.6-2.6); Osmolality,Calculated 294 (280-300); Potassium 3.3 mEq/L (3.5-5.1); Sodium 142 mEq/L (136-145); Triglycerides 180 mg/dL (< 150); eGFR For Non-African Americans > 60 (> 60)
[2018-04-17 05:02] LABS: Thyroid Stimulating Hormone 2.572 mcIU/mL (0.340-5.600)
[2018-04-17] MEDS ORDERED: *HR* Heparin 5,000 UNIT/ML VIAL SQ SCH (06:00)
[2018-04-17] MEDS ORDERED: Pantoprazole 40 MG VIAL IVP SCH (09:15)
--- NOTE | 2018-04-17 09:23 | Cardiology Consult Note ---
<Nilson Benítez S - Last Filed: 04/17/18 09:55> Date of Encounter: 04/17/18 Time of Encounter: 08:30 Assessment and Plan (1) Chest pain Current Visit: Yes Status: Acute Presented to the ER with c/o chest pain and LE swelling -she states the chest pain started sunday in the left chest, with radiation to her back between the shoulder blades -it started off coming and going but over the day it got progressively worse -she wasn't doing anything in particular when it started but states that she had some associated SOB on exertion, which she had throughout the entire . She has also had LE edema throughout her The pt had an uneventful one week ago -no complications during the surgery -no complications during her -she does admit to having abdominal pain that is sharp and non-radiating EKG obtained and showed sinus bradycardia, no ST changes -BNP of 261 -troponins negative x 2 -CXR showed no acute cardiopulmonary changes -CT scan showed no evidence of PE, mild cardiac chamber enlargement, questionable pulmonary edema -CT abdomen showed heterogeneous pelvic findings suggestive of possible postsurgical changes, but couldn't r/o endmetritis (pt denies fever, chills, purulent vaginal discharge) Plan: -ECHO pending -Lasix 20mg IVP daily, Potassium chloride 40mEq PO daily -discuss stress testing as an outpatient once ECHO results are back based on risk factors Qualifiers: Chest pain type: unspecified Qualified Code(s): R07.9 - Chest pain, unspecified (2) Peripheral edema Current Visit: Yes Status: Acute Likely secondary to fluid overload 2/2 recent surgery and IVF given during c- section 1+ pitting edema of the LE Plan: -20mg Lasix IVP daily, Potassium chloride 40mEq PO daily -ECHO pending -discussed with primary for LE doppler US and they will order it Discussion w patient/family: The assessment and plan as outlined above was discussed with the patient and/or family members who expressed understanding and agreement. All questions were answered. Thank you for involving us in the care of your patient. Please call with any questions. History of Present Illness Consult date: 04/16/18 Requesting physician: Kaz Sage Consult reason: Post cardiomyopathy Chief complaint: chest pain History of present illness: Ms. Lomax is a 47 year old female with a PMH of GERD -presented to the ER with c/o chest pain and LE swelling -she states the chest pain started sunday in the left chest, with radiation to her back between the shoulder blades -it started off coming and going but over the day it got progressively worse -she wasn't doing anything in particular when it started but states that she had some associated SOB on exertion, which she had throughout the entire . She has also had LE edema throughout her The pt had an uneventful one week ago -no complications during the surgery -no complications during her -she does admit to having abdominal pain that is sharp and non-radiating EKG obtained and showed sinus bradycardia, no ST changes -BNP of 261 -troponins negative x 2 -CXR showed no acute cardiopulmonary changes -CT scan showed no evidence of PE, mild cardiac chamber nelargement, questionable pulmonary edema -CT abdomen showed heterogeneous pelvic findings suggestive of possible postsurgical changes, but couldn't r/o endmetritis (pt denies fever, chills, purulent vaginal discharge) -ECHO pending The pt also endorses that she is not producing breast milk, which has occurred during her other pregnancies. She also has a hx of irregular periods and states that she would go a long time without one then she would bleed for weeks. On exam, the pt has striae over the abdomen. However, she denies visual changes or s/s of hair loss, cold intolerance. I discussed this with the primary team and they will work her up further to r/o pituitary fxn abnormalities or any endocrinopathies. Fluids - none Electrolytes - potassium of 3.3, being corrected by primary Nutrition - regular DVT prophylaxis - 5000U SQ heparin q12hr GI prophylaxis - Protonix 40mg IVP daily Past Med Surg Social Fam HX - Past Medical History Medical history: kidney stones, other Additional medical history: herniated disk L5. 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 Psychiatric history: no psych history - Past Surgical History Surgical History: breast surgery, cholecystectomy Additional surgical history: L5, kidney stone removal, - Social History Smoking Status: Never smoker Smokeless Tobacco Status: No Alcohol use: none Drug use: none - Family History Mother Hx Family Cardiac Disorders: Yes (a-fib) Hx Family Respiratory Disorders: Yes (COPD) Hx Family Cancer: No Hx Family GI Disorders: No Hx Family Genitourinary Disorders: No Hx Family Endocrine Disorder: No Hx Family Musculoskeletal Disorders: No Hx Family Neurologic Disorders: Yes (Anuerysms) Hx Family HEENT Disorders: No Hx Family Autoimmune Disorders: No Hx Family Reproductive Disorders: No Hx Family Psychosocial Disorders: No Hx Family Medical Disorders: No Father Adopted: No Family Member Ethnicity: Non- Living Status: Hx Family Cardiac Disorders: Yes (cardiomyopathy) Hx Family Respiratory Disorders: Yes (Emphy) Hx Family Cancer: No Hx Family GI Disorders: No Hx Family Genitourinary Disorders: No Hx Family Endocrine Disorder: No Hx Family Musculoskeletal Disorders: No Hx Family Neuromuscular Disorders: Yes (CVA) Hx Family Neurologic Disorders: No Hx Family HEENT Disorders: No Hx Family Autoimmune Disorders: No Hx Family Reproductive Disorders: No Hx Family Psychosocial Disorders: No Hx Family Medical Disorders: No Medications and Allergies Docusate Sodium [Dok] 100 mg PO BID PRN 04/17/18 [History] Ferrous Sulfate [Iron] 325 mg PO BID 04/17/18 [History] Ibuprofen [Ibu] 600 mg PO Q6H PRN 04/17/18 [History] Lidocaine Patch [Lidoderm 5% patch] 1 each TP DAILY 04/17/18 [History] Ondansetron HCl [Zofran] 4 mg PO QID PRN 04/17/18 [History] Vit Calc,Iron,Folic [ Vitamins] 1 tab PO DAILY 04/17/18 [ History] 3 Allergy/AdvReac Type Severity Reaction Status Date / Time No Known Allergies Allergy Verified 04/10/18 06:42 All Systems Review: The remainder of the systems were reviewed and are negative - Constitutional Constitutional: no fever(s), no headache(s), no malaise, no night sweats - Cardiovascular Cardiovascular: chest pain at rest, leg edema, palpitations, no chest pain with exertion, no orthopnea, no paroxysmal nocturnal dyspnea - Respiratory Respiratory: no cough, no wheezing - Gastrointestinal Gastrointestinal: abdominal pain, nausea, no diarrhea - Genitourinary Genitourinary: no dysuria - Integumentary Integumentary: no rash, no unusual bruising - Neurological Neurological: no numbness, no tingling Physical Examination Vital Signs, Last 4 Hours Temp Pulse Resp BP Pulse Ox 04/17/18 07:37 98.3 F 48 16 131/70 96 04/17/18 05:39 98.3 F 53 19 130/61 96 Results 04/17/18 03:40 04/17/18 03:40 Lab Results 04/17/18 04/17/18 04/17/18 03:40 03:40 03:40 WBC 8.9 Hgb 8.9 L Hct 26.2 L Plt Count 210 Sodium 142 Potassium 3.3 L Chloride 108 H Carbon Dioxide 28 BUN 12 Creatinine 0.67 Glucose 96 Calcium 8.3 L Magnesium 1.9 Troponin I < 0.03 TSH 2.572 Consult Discharge Plan - Plan Referrals: NONE,PCP [Primary Care Provider] - <Amina Braga - Last Filed: 04/17/18 13:32> Date of Encounter: 04/17/18 - Attending Attestation I examined this patient and my medical decision-making was reviewed with the Resident Physician. I agree with the documented findings, disposition and treatment plan as described except to the extent set forth below. Ms. Lomax presents with chest pain, SOB and LE edema one week after an uneventful . Patient describes left sided chest discomfort intermittently ongoing at rest since sunday. Noticed increased SOB and LE edema since . Resting comfortably at bedside in NAD, AAOx3. Vital signs reviewed - afebrile, oxygenating on RA, normal BP and HR. Labs reviewed - troponins negative, normal renal function, normal Hgb, BNP 261 CTA reviewed - negative for PE, possible pulmonary edema Telemetry reviewed - average HR 51 bpm, no pauses or dysrhythmia ECG reviewed 04/16/2018 at 19:35 - SB HR 53 bpm, normal intervals, no ischemic ECG findings. Impression/Plan: 1. Chest pain - atypical symptoms with negative troponins and no ischemic ECG findings. No identifiable significant CV risk factors. Will defer to primary team for evaluation of non-cardiac chest pain. Also describes discomfort in midepigastrum with known history of GERD. Consider oral PPI. 2. Bradycardia - sinus bradycardia noted on ECG and telemetry. Other ECG findings i.e. intervals are normal. Findings at this point do not appear concerning. Asked nursing to walk her in the [place] and check heart rates then correspond with me. 3. Volume overload - secondary to perioperative period. Recommend diuresis - IV lasix while inpatient, will defer to primary team for overall management which can be done as inpatient or outpatient with PO lasix used temporarily. Patient interested in getting home to her . Assessment and Plan Discussion w patient/family: The assessment and plan as outlined above was discussed with the patient and/or family members who expressed understanding and agreement. All questions were answered. Thank you for involving us in the care of your patient. Please call with any questions. History of Present Illness History of present illness: Ms. Lomax is a 47 year old female All Systems Review: The remainder of the systems were reviewed and are negative Physical Examination Vital Signs, Last 4 Hours Temp Pulse Resp BP Pulse Ox 04/17/18 11:51 98.5 F 52 16 132/60 96 Results 04/17/18 11:01 04/17/18 03:40 Lab Results 04/17/18 04/17/18 04/17/18 03:40 03:40 03:40 WBC 8.9 Hgb 8.9 L Hct 26.2 L Plt Count 210 Sodium 142 Potassium 3.3 L Chloride 108 H Carbon Dioxide 28 BUN 12 Creatinine 0.67 Glucose 96 Calcium 8.3 L Magnesium 1.9 Troponin I < 0.03 TSH 2.572 04/17/18 11:01 WBC Hgb 9.1 L Hct 27.4 L Plt Count Sodium Potassium Chloride Carbon Dioxide BUN Creatinine Glucose Calcium Magnesium Troponin I TSH
[2018-04-17] MEDS ORDERED: Ibuprofen 600 MG TABLET PO PRN (10:07)
[2018-04-17] MEDS ORDERED: Ondansetron ODT 4 MG TAB.RAPDIS PO PRN (10:07)
[2018-04-17] MEDS ORDERED: Furosemide 20 MG/2 ML VIAL IVP SCH (11:00)
[2018-04-17 11:46] LABS: Hematocrit 27.4 % (35.3-44.9); Hemoglobin 9.1 g/dL (11.5-15.4)
--- NOTE | 2018-04-17 12:11 | Discharge Summary ---
<Jeet Gunter - Last Filed: 04/17/18 13:03> - NOTES TO OUTPATIENT PROVIDER Notes to Outpatient Provider: Patient was admitted for left sided chest pain with radiation to the back and abdominal pain. Pain has no relieving or exaserbating factors. Patient is 2 days ago. EKG showed sinus bradycardia, negative Troponin x 2 and Echo showed no significant abnormalities. Pain was relieved by GI cocktail in ED. Hypokalemia at 3.3, treated with 40mEq KCL and Mg was 1.9 Date of Encounter: 04/17/18 Time of Encounter: 08:30 - Discharge Diagnosis (1) Chest pain Status: Acute Assessment and Plan: -Patient initially presented for left sided chest pain that radiated to the back -EKG showed sinus bradycardia, with not acute ischemic changes -Troponins were negative x 2 and Lipase level was 9 -Pain resolved after receiving a GI cocktail in the ED -CTA obtained emergency department to rule out pulmonary embolism. Showed no evidence of thrombosis but did show mild cardiac chamber enlargement and possible pulmonary edema -Chest pain is believed to be secondary to the patients history of GERD -Has been started on Omeprazole 20 mg -Echocardiogram showed normal LV chamber size, wall thickness and function, normal left ventricular diastolic function, normal right ventricular structure and function, no evidence of pulmonary hypertension, no significant valvular dysfunction. Qualifiers: Chest pain type: unspecified Qualified Code(s): R07.9 - Chest pain, unspecified; R07.8 - Other chest pain (2) cardiomyopathy Status: Suspected Assessment and Plan: -Patient presented with signs of fluid overload with +3 pitting edema -CT scan showed mild cardiac chamber enlargement and possible pulmonary edema, BNP slightly elevated at 261 -Family history of cardiomyopathy in father -Patient recently gave via 2 days prior -Patient is currently receiving Lasix 20 mg IV -On physical exam today, patient is CTAB and no peripheral edema was appreciated -Continue the patient on her dose of Lasix -TSH levels were ordered and found to be 2.57 -Echocardiogram showed no significant abnormalities. (3) Hypokalemia Status: Acute Assessment and Plan: -Patient had a Potassium level of 3.0 upon admission -Currently being treated with 40 mEq of Potassium replacement -Magnesium levels were checked and found to be 1.9 -Latest Potassium level was 3.3 -Continue treatment and monitoring (4) GERD (gastroesophageal reflux disease) Status: Chronic Assessment and Plan: -Patient has a previous history of GERD -Has not been compliant with her PPI due to her -Based on the negative cardiac findings thus far it is believed chest pain was due to GERD -Pain was resolved after receiving treatment via GI cocktail in ED -Currently receiving treatment via Omeprazole 20 mg PO Qualifiers: Esophagitis presence: esophagitis presence not specified Qualified Code(s) : K21.9 - Gastro-esophageal reflux disease without esophagitis (5) anemia Status: Chronic Assessment and Plan: -H/H of 10.0/29.2 upon admission -Hemoglobin has slightly worsened since admission with a latest value of 9.1 -No obvious signs of bleeding however on CT scan there was some heterogeneous material and deep pelvis. -Continue to observe, no indication for transfusion at this time Hospital course: Ms. Lomax is a 47 year old female Ms. Lomax is a 47 year old female with a PMH of GERD. She presented to the ED with complaints of left sided chest pain, lower extremity swelling, and abdominal pain. Patient had a 2 days prior without any complications. Ms. Lomax stated that the chest pain radiates to her back and denies any relieving or exacerbating factors and is non-reproducible, +3 pitting edema bilaterally. She states that she has had some shortness of breath during her and has been non-compliant with her Omeprazole. EKG upon admission showed sinus bradycardia with a HR between 40-50 without any evidence of acute ischemic changes. Labs were significant for H/H of 10.0/29.2, Potassium was mildly low at 3.0 and has since been replaced with 40 mEq of KCL in the ED. BNP was elevated at 261, and d-dimer was also elevated at 2283, Troponin was negative. CT of the chest was obtained due to concern for pulmonary embolism and showed no evidence of PE, mild cardiac chamber enlargement, questionable pulmonary edema and CT of the abdomen showed heterogeneous pelvic findings suggestive of possible postsurgical changes and inflammation. However, endometritis could not be ruled out. Patient's chest pain and abdominal pain were relieved via GI cocktail in the ED. Patient was admitted onto the floor and Troponin was again checked and found to be negative. Lipase was also negative, and an Echo showed: normal LV chamber size, wall thickness and function, normal left ventricular diastolic function, normal right ventricular structure and function, no evidence of pulmonary hypertension, no significant valvular dysfunction. Ms. Lomax is believed to have cardiomyopathy based on her recent . She received Lasix and on physical exam today (04/17/18) has no peripheral edema and denies chest pain and shortness of breath. At the time of discharge the patient's Potassium level had risen from 3.0 to 3.3 and her Mg was found to be 1.9 and her TSH was found to be 2.57. Her anemia had slightly worsened to a value of 9.1, however, she had no obvious signs of bleeding or any indication for transfusion. Chest pain was believed to be due to the patient's history of GERD and at the time of discharge Ms. Lomax was receiving Omeprazole 20 mg and was stable aside from a HR of 52. For more information see Assessment/Plan - Time Spent with Patient Total time spent providing and/or coordinating discharge services: - Discharge Medications Prescriptions: Furosemide [Lasix] 20 mg PO DAILY #5 tablet Omeprazole [PriLOSEC] 20 mg PO BIDAC #60 capsule. Potassium Chloride 40 meq PO DAILY #5 tab.er.prt Home Medications: Docusate Sodium [Dok] 100 mg PO BID PRN 04/17/18 [History] Ferrous Sulfate [Iron] 325 mg PO BID 04/17/18 [History] Furosemide [Lasix] 20 mg PO DAILY #5 tablet 04/17/18 [Rx] Lidocaine Patch [Lidoderm 5% patch] 1 each TP DAILY 04/17/18 [History] Omeprazole [PriLOSEC] 20 mg PO BIDAC #60 capsule. 04/17/18 [Rx] Ondansetron HCl [Zofran] 4 mg PO QID PRN 04/17/18 [History] Potassium Chloride 40 meq PO DAILY #5 tab.er.prt 04/17/18 [Rx] Vit Calc,Iron,Folic [ Vitamins] 1 tab PO DAILY 04/17/18 [ History] Allergies/Adverse Reactions: 3 Allergy/AdvReac Type Severity Reaction Status Date / Time No Known Allergies Allergy Verified 04/10/18 06:42 Date of admission: 04/16/18 23:27 Primary care physician: PCP NONE Anticipated date of discharge: 04/17/18 - Constitutional Vitals: Temp Pulse Resp BP Pulse Ox 98.5 F 52 16 132/60 96 04/17/18 11:51 04/17/18 11:51 04/17/18 11:51 04/17/18 11:51 04/17/18 11:51 General appearance: Present: A&O X 3, no acute distress - Head Head exam: Present: atraumatic, normocephalic - Eye Eye exam: Present: PERRL - Neck Neck exam general surgery: Present: trachea midline - Respiratory Respiratory exam: Present: CTAB. Absent: rales, rhonchi, wheezes - Cardiovascular Cardiovascular exam: Present: RRR, +S1, +S2. Absent: rubs - GI/Abdominal GI/Abdominal exam: Present: normal bowel sounds, soft, tenderness. Absent: distended, no peritoneal signs - Extremities Exam Extremities exam: Present: warm. Absent: calf tenderness, cyanotic, pedal edema , radial pulses palpable and symmetrical - Neurological Exam Neurological exam: Present: CN II-XII intact, oriented X3, no focal deficits - Skin Skin exam: Present: dry, intact - Patient Status Disposition: Home, Self-Care Condition: Good Functional capacity at discharge: independent ambulation Overall status at discharge: patient is back to baseline - Discharge Instructions Instructions: Furosemide (By mouth), Omeprazole (By mouth), Chest Pain (DC), Urinary Tract Infection in Women (DC), Anemia (GEN), Fall Prevention (DC) Follow Up With: NONE,PCP [Primary Care Provider] - Additional Instructions: Return for new or worsening symptoms. Follow up with PCP in 1-2 weeks. - Diet and Activity Diet: advance to your usual diet <Rodrigo Hunt - Last Filed: 04/17/18 18:33> Date of Encounter: 04/17/18 - Discharge Diagnosis (1) Hypokalemia Priority: Secondary Status: Acute (2) anemia Priority: Secondary Status: Chronic (3) Peripheral edema Priority: Secondary Status: Chronic (4) GERD (gastroesophageal reflux disease) Priority: Secondary Status: Chronic Qualifiers: Esophagitis presence: esophagitis presence not specified Qualified Code(s) : K21.9 - Gastro-esophageal reflux disease without esophagitis (5) cardiomyopathy Priority: Primary Status: Ruled-out (6) Chest pain Priority: Secondary Status: Acute Qualifiers: Chest pain type: other chest pain Qualified Code(s): R07.89 - Other chest pain; R07.8 - Other chest pain Hospital course: Ms. Lomax is a 47 year old female - Time Spent with Patient Total time spent providing and/or coordinating discharge services: 41min Date of admission: 04/16/18 23:27 Primary care physician: PCP NONE Discharging clinician: Rodrigo Hunt - Constitutional Vitals: Temp Pulse Resp BP Pulse Ox 98.1 F 47 16 133/62 95 04/17/18 15:41 04/17/18 15:41 04/17/18 15:41 04/17/18 15:41 04/17/18 15:41 - Diet and Activity Activity: increase activity as tolerated - Attending Attestation The history, physical exam, and medical decision making was performed by the medical student either while I was physically present and actively involved or I personally re-performed the exam and medical decision making. I have verified the accuracy of the medical student's documentation with regards to the history, physical exam findings, and medical decision making on 04/17/18. Ms Lomax has been in observation due to concern for peripartum cardiomyopathy. She has not had issues with dyspnea at this time. Her echo was normal. She had a headache which has improved with Toradol. She is afebrile and ready for discharge home. Exam Alert. Comfortable at this time. Mucus membranes dry Heart tru and regular Lungs clear at this time Abd soft Edema present bilateral lower extremities. Plan D/C home today Short course of Lasix/potassium. Follow up with PCP PPI for GERD.
[2018-04-17] MEDS ORDERED: Ketorolac 30 MG/ML VIAL IVP ONE (14:44)
[2018-04-17 15:45] VITALS: BP 133/62
--- NOTE | 2018-04-17 17:06 | Electrocardiograph Report ---
[place] [id number] Test Date: 2018-04-16 Pat Name: Marly Lomax Department: 104 Room: 2N0 Gender: F [employer]: EKP : 1970 Requested By: [id number] Order Number: [id number] Reading MD: Blade Vergara Measurements Intervals [place] Rate: 53 P: 24 CO: 133 QRS: 38 QRSD: 94 T: 43 QT: 460 QTc: 443 Interpretive Statements SINUS BRADYCARDIA Electronically Signed On 04-17-2018 17:04:47 EDT by Blade Vergara
[2018-04-18] MEDS ORDERED: Prenatal Vit/FA 1 EACH TABLET PO SCH (09:00)
[2018-04-18] MEDS ORDERED: Furosemide 20 MG/2 ML VIAL IVP SCH (09:00)
== END 2018-04-17 19:10 | disposition home or self-care (01) ==
LOC: 2NENU 19:20 → EMEROO 19:20 → SUATTDRO 23:27 → 2NENU 23:58
PROVIDERS: ADMIT Internal Medicine; ATTEND Internal Medicine

== ENCOUNTER 2018-06-22 09:24 | Observation (INO) ==
[2018-06-22] MEDS ORDERED: Ondansetron 4 MG/2 ML VIAL IVP ONE (09:33)
[2018-06-22] MEDS ORDERED: 0.9 % Sodium Chloride 1,000 ML IVC ONE (09:33)
[2018-06-22] MEDS ORDERED: *HR* FentaNYL (PF) 100 MCG/2 ML VIAL IVP ONE (09:34)
--- NOTE | 2018-06-22 09:34 | Emergency Department Note ---
Disposition Clinical Impression: Ureterolithiasis Disposition: Admitted As Inpatient Condition: Good Prescriptions: Ondansetron ODT [Zofran ODT] 4 mg SL Q6HR PRN #14 tab.rapdis PRN Reason: Nausea And Vomiting Oxycodone HCl/Acetaminophen [Percocet 5-325 mg Tablet] 1 each PO Q4-6H PRN 3 Days #14 tablet PRN Reason: Pain Referrals: NONE,PCP [Primary Care Provider] - Forms: ED Satisfaction Letter, Work/School Release General Adult HPI - General Chief complaint: ED Abdominal Pain Stated complaint: Kidney Stone Time Seen by Provider: 06/22/18 09:28 - History of Present Illness Pain Scale: 5 - Related Data Home Medications Medication Instructions Recorded Confirmed Docusate Sodium [Dok] 100 mg PO BID PRN 04/17/18 04/17/18 Ferrous Sulfate [Iron] 325 mg PO BID 04/17/18 04/17/18 Lidocaine Patch [Lidoderm 5% patch] 1 each TP DAILY 04/17/18 04/17/18 Ondansetron HCl [Zofran] 4 mg PO QID PRN 04/17/18 04/17/18 Vit Calc,Iron,Folic 1 tab PO DAILY 04/17/18 04/17/18 [ Vitamins] Previous Rx's Medication Instructions Recorded Furosemide [Lasix] 20 mg PO DAILY #5 tablet 04/17/18 Omeprazole [PriLOSEC] 20 mg PO BIDAC #60 capsule.dr 04/17/18 Potassium Chloride 40 meq PO DAILY #5 tab.er.prt 04/17/18 Lidocaine [Lidoderm] 1 each TP DAILY PRN #5 adh..patch 05/10/18 predniSONE [Prednisone] 50 mg PO DAILY 5 Days #5 tablet 05/10/18 Ondansetron ODT [Zofran ODT] 4 mg SL Q6HR PRN #14 tab.rapdis 06/22/18 Oxycodone HCl/Acetaminophen 1 each PO Q4-6H PRN 3 Days #14 06/22/18 [Percocet 5-325 mg Tablet] tablet Allergies Allergy/AdvReac Type Severity Reaction Status Date / Time No Known Allergies Allergy Verified 04/10/18 06:42 Past Medical History - Past Medical History Medical history: Reports: kidney stones, other Surgical history: Reports: breast surgery, cholecystectomy Psychiatric history: Reports: no psych history [employer] WORK[employer] history: Reports: no [employer] UT[employer] WORKER history - Social History Smoking Status: Never smoker Smokeless Tobacco Status: No Alcohol use: Reports: none Drug use: Reports: none Course Vital Signs Temperature 97.8 F 06/22/18 09:25 Pulse Rate 74 06/22/18 09:25 Respiratory Rate 18 06/22/18 09:25 Blood Pressure 122/84 06/22/18 09:25 O2 Sat by Pulse Oximetry 99 06/22/18 09:25 Temperature 97.8 F 06/22/18 09:39 Pulse Rate 64 06/22/18 11:47 Respiratory Rate 18 06/22/18 11:47 Blood Pressure 111/63 06/22/18 11:47 O2 Sat by Pulse Oximetry 100 06/22/18 11:47 Oxygen Delivery Oxygen Delivery Room Air Medical Decision Making - Lab Data Result diagrams: 06/22/18 09:33 06/22/18 09:51 Lab Results 06/22/18 06/22/18 06/22/18 Range/Units 09:28 09:33 09:33 WBC 10.2 (4.3-11.1) K/mcL RBC 4.09 (3.82-4.97) M/mcL Hgb 11.4 L (11.5-15.4) g/dL Hct 35.5 (35.3-44.9) % MCV 86.8 (83.0-100.0) fL MCH 27.9 L (28.0-33.3) pg MCHC 32.1 (31.6-35.5) g/dL RDW 13.6 (11.5-14.5) % Plt Count 242 (140-400) K/mcL MPV 10.3 (9.4-12.4) fL Immature Gran % 0.5 (0-4) % Seg Neutrophils % 66.5 % Lymphocytes % 20.9 % Monocytes % 8.3 % Eosinophils % 3.3 % Basophils % 0.5 % Neutrophils # 6.8 (1.6-8.9) K/mcL Lymphocytes # 2.1 (0.6-4.6) K/mcL Monocytes # 0.9 (0.0-1.3) K/mcL Eosinophils # 0.3 (0.0-0.6) K/mcL Basophils # 0.1 (0.0-0.2) K/mcL Sodium (136-145) mEq/L Potassium (3.5-5.1) mEq/L Chloride (98-107) mEq/L Carbon Dioxide (23-29) mEq/L BUN (6-20) mg/dL Creatinine (0.60-1.20) mg/dL Est GFR ( Amer) (> 60) Est GFR (Non-Af Amer) (> 60) BUN/Creatinine Ratio (6-26) Glucose (70-105) mg/dL Calculated Osmolality (280-300) Calcium (8.6-10.3) mg/dL Total Bilirubin (0.3-1.0) mg/dL Direct Bilirubin (0.0-0.2) mg/dL Indirect Bilirubin (0.0-1.2) mg/dL AST (13-39) Units/L ALT (7-52) Units/L Alkaline Phosphatase (34-104) Units/L Serum Total Protein (6.4-8.9) g/dL Albumin (3.5-5.7) g/dL Globulin (2.4-3.5) g/dL Albumin/Globulin Ratio (1.1-2.2) Lipase (11-82) Units/L Urine Color Yellow (Yellow) Urine Clarity Clear (Clear) Urine pH 5.5 (5.0-8.0) pH Units Ur Specific [place] 1.015 (1.010-1.025) Urine Protein Negative (Neg-Trace) mg/dL Urine Glucose (UA) Normal (Normal) mg/dL Urine Ketones Negative (Negative) mg/dL Urine Blood Trace H (Negative) Urine Nitrite Negative (Negative) Urine Bilirubin Negative (Negative) Urine Urobilinogen Normal (Normal) mg/dL Ur Leukocyte Esterase Negative (Negative) Urine Microscopic RBC 0-3 (0-3) per hpf Urine Microscopic WBC 3-5 H (0-3) per hpf Ur Squamous Epith Cells Many H (None-Few) per lpf Urine Bacteria None Seen (None-Few) per hpf Hyaline Casts None Seen (None-Few) per lpf Ur Culture Indicated? NO (NO) Urine Test Negative (Negative) 06/22/18 Range/Units 09:51 WBC (4.3-11.1) K/mcL RBC (3.82-4.97) M/mcL Hgb (11.5-15.4) g/dL Hct (35.3-44.9) % MCV (83.0-100.0) fL MCH (28.0-33.3) pg MCHC (31.6-35.5) g/dL RDW (11.5-14.5) % Plt Count (140-400) K/mcL MPV (9.4-12.4) fL Immature Gran % (0-4) % Seg Neutrophils % % Lymphocytes % % Monocytes % % Eosinophils % % Basophils % % Neutrophils # (1.6-8.9) K/mcL Lymphocytes # (0.6-4.6) K/mcL Monocytes # (0.0-1.3) K/mcL Eosinophils # (0.0-0.6) K/mcL Basophils # (0.0-0.2) K/mcL Sodium 138 (136-145) mEq/L Potassium 3.9 (3.5-5.1) mEq/L Chloride 105 (98-107) mEq/L Carbon Dioxide 27 (23-29) mEq/L BUN 13 (6-20) mg/dL Creatinine 0.75 (0.60-1.20) mg/dL Est GFR ( Amer) > 60 (> 60) Est GFR (Non-Af Amer) > 60 (> 60) BUN/Creatinine Ratio 17 (6-26) Glucose 98 (70-105) mg/dL Calculated Osmolality 286 (280-300) Calcium 8.6 (8.6-10.3) mg/dL Total Bilirubin 0.4 (0.3-1.0) mg/dL Direct Bilirubin 0.1 (0.0-0.2) mg/dL Indirect Bilirubin 0.3 (0.0-1.2) mg/dL AST 28 (13-39) Units/L ALT 34 (7-52) Units/L Alkaline Phosphatase 74 (34-104) Units/L Serum Total Protein 6.2 L (6.4-8.9) g/dL Albumin 3.6 (3.5-5.7) g/dL Globulin 2.6 (2.4-3.5) g/dL Albumin/Globulin Ratio 1.4 (1.1-2.2) Lipase 5 L (11-82) Units/L Urine Color (Yellow) Urine Clarity (Clear) Urine pH (5.0-8.0) pH Units Ur Specific [place] (1.010-1.025) Urine Protein (Neg-Trace) mg/dL Urine Glucose (UA) (Normal) mg/dL Urine Ketones (Negative) mg/dL Urine Blood (Negative) Urine Nitrite (Negative) Urine Bilirubin (Negative) Urine Urobilinogen (Normal) mg/dL Ur Leukocyte Esterase (Negative) Urine Microscopic RBC (0-3) per hpf Urine Microscopic WBC (0-3) per hpf Ur Squamous Epith Cells (None-Few) per lpf Urine Bacteria (None-Few) per hpf Hyaline Casts (None-Few) per lpf Ur Culture Indicated? (NO) Urine Test (Negative) Attestation Statement - Attestation Attestation: I examined this patient and my medical decision-making was reviewed with the Resident Physician. I agree with the documented findings, disposition and treatment plan as described except to the extent set forth below. [id number] time provided Patient arrives complaining of right flank pain. History of ureterolithiasis requiring extraction. She states the pain is similar. Appears mildly uncomfortable on exam. Triage note and vital signs reviewed by me
[2018-06-22 09:40] LABS: Bilirubin,Urine Negative (Negative); Blood,Urine Trace (Negative); Clarity,Urine Clear (Clear); Color,Urine Yellow (Yellow); Glucose,Urine (UA) Normal (Normal); Ketones,Urine Negative (Negative); Leukocyte Esterase,Urine Negative (Negative); Nitrite,Urine Negative (Negative); PH,Urine 5.5 pH Units (5.0-8.0); Protein,Urine Negative (Neg-Trace); Specific Gravity,Urine 1.015 (1.010-1.025); Urobilinogen,Urine Normal (Normal)
[2018-06-22 09:43] LABS: Bacteria,Urine None Seen per hpf (None-Few); Hyaline Casts,Urine None Seen per lpf (None-Few); RBC,Urine 0-3 per hpf (0-3); Squamous Epithelial Cell,Urine Many per lpf (None-Few)
--- NOTE | 2018-06-22 09:43 | Emergency Department Note ---
Disposition Clinical Impression: Ureterolithiasis Disposition: Admitted As Inpatient Condition: Good Abdominal Pain HPI - General Chief Complaint: ED Abdominal Pain Stated Complaint: Kidney Stone Time Seen by Provider: 06/22/18 09:28 Source: patient Mode of arrival: private vehicle Limitations: no limitations Nursing Notes Reviewed: Yes Vital Signs Reviewed: Yes - History of Present Illness HPI Narrative: This is a 47-year-old female with a past history of obstructive uropathy requiring intervention who presents to the ER with a complaint of right flank and right lower quadrant pain. Symptoms began yesterday. Feels very similar to her prior kidney stones. Reports the pain is in the right side going into her right lower quadrant. She has had 2 kidney stones previously requiring admission, lithotripsy, extraction and ureteral stent placement. Reports nausea. No vomiting or diarrhea. No dysuria or hematuria. She is 2 weeks postoperative from a discectomy for which she has been on Vicodin which mildly helped her pain. No other complaints. Pt Subjective Complaint: flank pain Onset (ago): day(s) Consistency: intermittent Location: RLQ Pain Severity: moderate Pain Scale: 5 Radiation: none Migration to: RLQ Improves with: nothing Worsens with: nothing Context: history of similar episodes Associated symptoms: Reports: nausea. Denies: vomiting, diarrhea, fever, dysuria, hematuria Treatments prior to arrival: none - Related Data Home Medications Medication Instructions Recorded Confirmed Docusate Sodium [Dok] 100 mg PO BID PRN 04/17/18 04/17/18 Ferrous Sulfate [Iron] 325 mg PO BID 04/17/18 04/17/18 Lidocaine Patch [Lidoderm 5% patch] 1 each TP DAILY 04/17/18 04/17/18 Ondansetron HCl [Zofran] 4 mg PO QID PRN 04/17/18 04/17/18 Vit Calc,Iron,Folic 1 tab PO DAILY 04/17/18 04/17/18 [ Vitamins] Previous Rx's Medication Instructions Recorded Furosemide [Lasix] 20 mg PO DAILY #5 tablet 04/17/18 Omeprazole [PriLOSEC] 20 mg PO BIDAC #60 capsule. 04/17/18 Potassium Chloride 40 meq PO DAILY #5 tab.er.prt 04/17/18 Lidocaine [Lidoderm] 1 each TP DAILY PRN #5 adh..patch 05/10/18 predniSONE [Prednisone] 50 mg PO DAILY 5 Days #5 tablet 05/10/18 Ondansetron ODT [Zofran ODT] 4 mg SL Q6HR PRN #14 tab.rapdis 06/22/18 Oxycodone HCl/Acetaminophen 1 each PO Q4-6H PRN 3 Days #14 06/22/18 [Percocet 5-325 mg Tablet] tablet Allergies Allergy/AdvReac Type Severity Reaction Status Date / Time No Known Allergies Allergy Verified 04/10/18 06:42 All systems ED: reviewed and negative except as stated. Constitutional: Denies: fever Gastrointestinal: Reports: abdominal pain, nausea. Denies: vomiting, diarrhea Genitourinary: Denies: dysuria, hematuria Abdominal Pain PMH - Past Medical History Medical history: Reports: kidney stones, other Female Surgical History: Reports: breast surgery, cholecystectomy AEROBICS TEACHER history: Reports: no AEROBICS TEACHER history Psychiatric history: Reports: no psych history - Social History Smoking status: Never smoker Alcohol use: Reports: none Drug use: Reports: none Physical Exam - General Limitations: no limitations General appearance: alert, in no apparent distress - Head Head exam: atraumatic, normocephalic - Eye Eye exam: Present: normal appearance - ENT ENT exam: normal exam - Neck Neck exam: Present: normal inspection - Chest Chest inspection: Present: normal inspection, symmetric chest wall rise - Respiratory Respiratory exam: Present: normal lung sounds bilaterally - Cardiovascular Cardiovascular exam: Present: regular rate, normal rhythm, normal heart sounds - Abdominal Exam Abdominal exam: Present: soft, tenderness (Moderate right lower quadrant tenderness). Absent: distention, guarding, rigidity - Extremities Exam Extremities exam: Present: normal inspection, full ROM - Expanded Upper Extremity Exam Shoulder exam: Present: normal inspection, full ROM Arm exam: Present: normal inspection, full ROM Elbow exam: Present: normal inspection, full ROM Forearm/Wrist exam: Present: normal inspection, full ROM Hand exam: Present: normal inspection, full ROM - Expanded Lower Extremity Exam Hip/Pelvis exam: Present: normal inspection, full ROM Upper leg exam: Present: normal inspection, full ROM Knee exam: Present: normal inspection, full ROM Lower leg exam: Present: normal inspection, full ROM Ankle exam: Present: normal inspection, full ROM Foot/toe exam: Present: normal inspection, full ROM - Skin Skin exam: Present: warm, dry Course Course Narrative: Patient seen and examined. Vital signs reviewed. I reviewed her prior workups here including operative intervention of ureterolithiasis in 2016 requiring lithotripsy, basket extraction and ureteral stent placement. Given history of obstructive uropathy requiring intervention plan for CT imaging, labs, urinalysis. Pain and nausea to be controlled here. - Reevaluation(s) Reevaluation #1: Discussed results of imaging labs with the patient. Imaging demonstrates a ureterolithiasis with hydronephrosis. No evidence of UTI. Labs are grossly unremarkable. Patient has well-controlled pain here. Discussed potential admission versus likely discharge home. The patient is concerned that her pain will worsen. We can adjust this with increasing to Percocet for pain. I will also discuss this with urology for there opinion as well as close outpatient follow-up. Reevaluation #2: I discussed the recommendations of urology with the patient. She is agreeable with this plan. We will have her stop taking Vicodin and increase her pain regimen to Percocet. Reevaluation #3: The patient and conveyed to the nurse that she did not feel comfortable going home as well as Vicodin was already sedating her and anything stronger might make her not be able to take care of her child. 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 - Consultations Consultation #1: I discussed this case with the on-call urologist Dr. Urban. Discussed the patient's past history, exam, imaging and labs. Her pain is well-controlled at this point. She does have reservations about going home because her pain could get worse. Agrees that she would be a candidate for outpatient follow-up, send an email to the urology office and they would be able to see her on Sunday if she is still feeling unwell. Consultation #2: Discussed this case again with the on-call urologist Dr. Urban. The patient feels comfortable going home as she has ever passed a stone previously and is currently caring for her child slowly and does not believe she will be able to she is on stronger analgesia. He still did not deem her a candidate for inpatient evaluation and believe she can be managed as an outpatient. I discussed with him that the patient continues to concern about worsening features. States admitted to the hospitalist with urological consultation with no guarantee of immediate intervention. Vital Signs Temperature 97.8 F 10/13/18 09:25 Pulse Rate 74 06/22/18 09:25 Respiratory Rate 18 06/22/18 09:25 Blood Pressure 122/84 06/22/18 09:25 O2 Sat by Pulse Oximetry 99 06/22/18 09:25 Temperature 98.1 F 06/22/18 15:53 Pulse Rate 73 06/22/18 15:53 Respiratory Rate 16 06/22/18 15:53 Blood Pressure 96/58 06/22/18 15:53 O2 Sat by Pulse Oximetry 97 06/22/18 15:53 Oxygen Delivery Oxygen Delivery Room Air Abdominal Pain - MDM Narrative Medical decision making narrative: 47-year-old female presented with flank pain for 1 day with a past history of recurrent obstructive uropathy. Imaging demonstrates a mid ureteral 6 mm stone. Labs and urinalysis are grossly unremarkable. Pain was controlled however the patient had numerous reservations about being discharged. This case was discussed multiple times with urology. The patient will be admitted to the hospitalist service with urology consultation. - Lab Data Lab results reviewed: Yes I reviewed the patient's lab results. Result diagrams: 06/22/18 09:33 06/22/18 09:51 Lab Results 06/22/18 06/22/18 06/22/18 Range/Units 09:28 09:33 09:33 WBC 10.2 (4.3-11.1) K/mcL RBC 4.09 (3.82-4.97) M/mcL Hgb 11.4 L (11.5-15.4) g/dL Hct 35.5 (35.3-44.9) % MCV 86.8 (83.0-100.0) fL MCH 27.9 L (28.0-33.3) pg MCHC 32.1 (31.6-35.5) g/dL RDW 13.6 (11.5-14.5) % Plt Count 242 (140-400) K/mcL MPV 10.3 (9.4-12.4) fL Immature Gran % 0.5 (0-4) % Seg Neutrophils % 66.5 % Lymphocytes % 20.9 % Monocytes % 8.3 % Eosinophils % 3.3 % Basophils % 0.5 % Neutrophils # 6.8 (1.6-8.9) K/mcL Lymphocytes # 2.1 (0.6-4.6) K/mcL Monocytes # 0.9 (0.0-1.3) K/mcL Eosinophils # 0.3 (0.0-0.6) K/mcL Basophils # 0.1 (0.0-0.2) K/mcL Sodium (136-145) mEq/L Potassium (3.5-5.1) mEq/L Chloride (98-107) mEq/L Carbon Dioxide (23-29) mEq/L BUN (6-20) mg/dL Creatinine (0.60-1.20) mg/dL Est GFR ( Amer) (> 60) Est GFR (Non-Af Amer) (> 60) BUN/Creatinine Ratio (6-26) Glucose (70-105) mg/dL Calculated Osmolality (280-300) Calcium (8.6-10.3) mg/dL Total Bilirubin (0.3-1.0) mg/dL Direct Bilirubin (0.0-0.2) mg/dL Indirect Bilirubin (0.0-1.2) mg/dL AST (13-39) Units/L ALT (7-52) Units/L Alkaline Phosphatase (34-104) Units/L Serum Total Protein (6.4-8.9) g/dL Albumin (3.5-5.7) g/dL Globulin (2.4-3.5) g/dL Albumin/Globulin Ratio (1.1-2.2) Lipase (11-82) Units/L Urine Color Yellow (Yellow) Urine Clarity Clear (Clear) Urine pH 5.5 (5.0-8.0) pH Units Ur Specific [place] 1.015 (1.010-1.025) Urine Protein Negative (Neg-Trace) mg/dL Urine Glucose (UA) Normal (Normal) mg/dL Urine Ketones Negative (Negative) mg/dL Urine Blood Trace H (Negative) Urine Nitrite Negative (Negative) Urine Bilirubin Negative (Negative) Urine Urobilinogen Normal (Normal) mg/dL Ur Leukocyte Esterase Negative (Negative) Urine Microscopic RBC 0-3 (0-3) per hpf Urine Microscopic WBC 3-5 H (0-3) per hpf Ur Squamous Epith Cells Many H (None-Few) per lpf Urine Bacteria None Seen (None-Few) per hpf Hyaline Casts None Seen (None-Few) per lpf Ur Culture Indicated? NO (NO) Urine Test Negative (Negative) 06/22/18 Range/Units 09:51 WBC (4.3-11.1) K/mcL RBC (3.82-4.97) M/mcL Hgb (11.5-15.4) g/dL Hct (35.3-44.9) % MCV (83.0-100.0) fL MCH (28.0-33.3) pg MCHC (31.6-35.5) g/dL RDW (11.5-14.5) % Plt Count (140-400) K/mcL MPV (9.4-12.4) fL Immature Gran % (0-4) % Seg Neutrophils % % Lymphocytes % % Monocytes % % Eosinophils % % Basophils % % Neutrophils # (1.6-8.9) K/mcL Lymphocytes # (0.6-4.6) K/mcL Monocytes # (0.0-1.3) K/mcL Eosinophils # (0.0-0.6) K/mcL Basophils # (0.0-0.2) K/mcL Sodium 138 (136-145) mEq/L Potassium 3.9 (3.5-5.1) mEq/L Chloride 105 (98-107) mEq/L Carbon Dioxide 27 (23-29) mEq/L BUN 13 (6-20) mg/dL Creatinine 0.75 (0.60-1.20) mg/dL Est GFR ( Amer) > 60 (> 60) Est GFR (Non-Af Amer) > 60 (> 60) BUN/Creatinine Ratio 17 (6-26) Glucose 98 (70-105) mg/dL Calculated Osmolality 286 (280-300) Calcium 8.6 (8.6-10.3) mg/dL Total Bilirubin 0.4 (0.3-1.0) mg/dL Direct Bilirubin 0.1 (0.0-0.2) mg/dL Indirect Bilirubin 0.3 (0.0-1.2) mg/dL AST 28 (13-39) Units/L ALT 34 (7-52) Units/L Alkaline Phosphatase 74 (34-104) Units/L Serum Total Protein 6.2 L (6.4-8.9) g/dL Albumin 3.6 (3.5-5.7) g/dL Globulin 2.6 (2.4-3.5) g/dL Albumin/Globulin Ratio 1.4 (1.1-2.2) Lipase 5 L (11-82) Units/L Urine Color (Yellow) Urine Clarity (Clear) Urine pH (5.0-8.0) pH Units Ur Specific [place] (1.010-1.025) Urine Protein (Neg-Trace) mg/dL Urine Glucose (UA) (Normal) mg/dL Urine Ketones (Negative) mg/dL Urine Blood (Negative) Urine Nitrite (Negative) Urine Bilirubin (Negative) Urine Urobilinogen (Normal) mg/dL Ur Leukocyte Esterase (Negative) Urine Microscopic RBC (0-3) per hpf Urine Microscopic WBC (0-3) per hpf Ur Squamous Epith Cells (None-Few) per lpf Urine Bacteria (None-Few) per hpf Hyaline Casts (None-Few) per lpf Ur Culture Indicated? (NO) Urine Test (Negative) - Radiology Data Radiology results reviewed: Yes I reviewed the patient's radiology results. Abdomen/Pelvis CT 06/22/18 09:55 IMPRESSION: 1. 6.6 mm mid to distal right ureteral calculus with hydronephrosis. 2. Cholecystectomy. 3. Incidental right ovarian cyst 3.5 cm. No follow-up is recommended. RECOMMENDATIONS: No follow-up imaging is recommended. Reference: US BPRs based on Radiology 2010 May;256(3):943-54; CT/MR BPRs based on J Am Gianni Radiol 2013;10:675-681. D/ / 06/22/2018 10:28:22 Huey Jacobo MD / mello Interpreting Provider: MD Ar Phelps - Ar Situation: Demographics, MOA Background: Presenting Complaint, Relevant PMH, Meds, & Allergies Assessment: Course and respsone to treatment, Exam Concerns, Patient/Family Expectation, Pertinant Lab Results Recommendation: Barrier(s) to disposition, Recommendation based on pending studies, treatments, or consults Ar Report Given to: Hospitalist Ar Machado Time: 12:07
[2018-06-22 10:04] LABS: Basophils # 0.1 K/mcL (0.0-0.2); Basophils % 0.5 %; Eosinophils # 0.3 K/mcL (0.0-0.6); Eosinophils % 3.3 %; Hematocrit 35.5 % (35.3-44.9); Hemoglobin 11.4 g/dL (11.5-15.4); Immature Granulocytes % 0.5 % (0-4); Lymphocytes # 2.1 K/mcL (0.6-4.6); Lymphocytes % 20.9 %; Mean Corpuscular HGB Conc 32.1 g/dL (31.6-35.5); Mean Corpuscular Hemoglobin 27.9 pg (28.0-33.3); Mean Corpuscular Volume 86.8 fL (83.0-100.0); Mean Platelet Volume 10.3 fL (9.4-12.4); Monocytes # 0.9 K/mcL (0.0-1.3); Monocytes % 8.3 %; Neutrophils # 6.8 K/mcL (1.6-8.9); Platelet Count 242 K/mcL (140-400); Red Blood Count 4.09 M/mcL (3.82-4.97); Red Cell Distribution Width 13.6 % (11.5-14.5); Segmented Neutrophils % 66.5 %
[2018-06-22 10:22] LABS: Alanine Aminotransferase 34 Units/L (7-52); Albumin 3.6 g/dL (3.5-5.7); Albumin/Globulin Ratio 1.4 (1.1-2.2); Alkaline Phosphatase 74 Units/L (34-104); Aspartate Amino Transferase 28 Units/L (13-39); BUN/Creatinine Ratio 17 (6-26); Bilirubin,Direct 0.1 mg/dL (0.0-0.2); Bilirubin,Indirect 0.3 mg/dL (0.0-1.2); Bilirubin,Total 0.4 mg/dL (0.3-1.0); Blood Urea Nitrogen 13 mg/dL (6-20); Calcium 8.6 mg/dL (8.6-10.3); Carbon Dioxide 27 mEq/L (23-29); Chloride 105 mEq/L (98-107); Globulin 2.6 g/dL (2.4-3.5); Glucose 98 mg/dL (70-105); Lipase 5 Units/L (11-82); Osmolality,Calculated 286 (280-300); Potassium 3.9 mEq/L (3.5-5.1); Sodium 138 mEq/L (136-145); Total Protein 6.2 g/dL (6.4-8.9); eGFR For Non-African Americans > 60 (> 60)
[2018-06-22] MEDS ORDERED: Ketorolac 15 MG/ML VIAL IVP ONE (11:24)
--- NOTE | 2018-06-22 12:17 | Internal Med History&Physical ---
Date of Encounter: 06/22/18 Time of Encounter: 12:10 Internal Medicine - H&P: HPI Chief complaint: right flank pain Admitted From: Home Plans for Post Hospital Care: Home History of present illness: Ms. Lomax is a 47 year old female with history of obstructive uropathy requiring intervention, multiple kidney stones requiring admission, lithotripsy and extraction with recent discectomy presented to the emergency department with complaint of right-sided flank pain. She reports that the pain is sharp in nature, 7 out of 10, and radiates to the right lower quadrant. She has had similar pain in the past and was diagnosed with kidney stones requiring intervention. She denies dysuria, hematuria, frequency. In addition to right flank pain she also reports nausea, denies vomiting or diarrhea. Her pain is aggravated with movement and palpation of the right flank. Minimally relieved with pain medicine that she was prescribed at home. She recently had a discectomy done about 2 weeks ago and was discharged with Vicodin which mildly helps her pain. Since her symptoms were similar to her symptoms when she was diagnosed with kidney stones she decided to come to the emergency department for further evaluation. 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 She recently had a 9 weeks ago, denies any difficulties with her or delivery. She is currently not breast-feeding. In the ED CT abdomen and pelvis was performed, it showed 6.6 mm mid to distal right ureteral calculus with hydronephrosis. Urology (Dr. Urban) was consulted by the ED physician it was recommended for her to follow-up as outpatient with urology office. 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 She denies any fever, chills, nausea, vomiting, syncope, loss of consciousness, chest pain, loss of function of her extremities. Past Med Surg Social Fam HX - Past Medical History Medical history: kidney stones, other Additional medical history: herniated disk L5. 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 Psychiatric history: no psych history - Past Surgical History Surgical History: breast surgery, cholecystectomy Additional surgical history: L5, kidney stone removal, - Social History Smoking Status: Never smoker Smokeless Tobacco Status: No Alcohol use: none Drug use: none - Family History Mother Hx Family Cardiac Disorders: Yes (a-fib) Hx Family Respiratory Disorders: Yes (COPD) Hx Family Cancer: No Hx Family GI Disorders: No Hx Family Endocrine Disorder: No Hx Family Neurologic Disorders: Yes (Anuerysms) Hx Family HEENT Disorders: No Hx Family Autoimmune Disorders: No Father Adopted: No Family Member Ethnicity: Non- Living Status: Hx Family Cardiac Disorders: Yes (cardiomyopathy) Hx Family Respiratory Disorders: Yes (Emphy) Hx Family Cancer: No Hx Family GI Disorders: No Hx Family Endocrine Disorder: No Hx Family Neuromuscular Disorders: Yes (CVA) Hx Family Neurologic Disorders: No Hx Family HEENT Disorders: No Hx Family Autoimmune Disorders: No Internal Medicine - H&P: Meds Docusate Sodium [Dok] 100 mg PO BID PRN 04/17/18 [History] Ferrous Sulfate [Iron] 325 mg PO BID 04/17/18 [History] Furosemide [Lasix] 20 mg PO DAILY #5 tablet 04/17/18 [Rx] Lidocaine Patch [Lidoderm 5% patch] 1 each TP DAILY 04/17/18 [History] Omeprazole [PriLOSEC] 20 mg PO BIDAC #60 capsule.dr 04/17/18 [Rx] Ondansetron HCl [Zofran] 4 mg PO QID PRN 04/17/18 [History] Potassium Chloride 40 meq PO DAILY #5 tab.er.prt 04/17/18 [Rx] Vit Calc,Iron,Folic [ Vitamins] 1 tab PO DAILY 04/17/18 [ History] Lidocaine [Lidoderm] 1 each TP DAILY PRN #5 adh..patch 05/10/18 [Rx] predniSONE [Prednisone] 50 mg PO DAILY 5 Days #5 tablet 05/10/18 [Rx] Ondansetron ODT [Zofran ODT] 4 mg SL Q6HR PRN #14 tab.rapdis 06/22/18 [Rx] Oxycodone HCl/Acetaminophen [Percocet 5-325 mg Tablet] 1 each PO Q4-6H PRN 3 Days #14 tablet 06/22/18 [Rx] 3 Allergy/AdvReac Type Severity Reaction Status Date / Time No Known Allergies Allergy Verified 04/10/18 06:42 All Systems PM: A 10-system review of systems was performed and is negative for pertinent findings except as documented above in the HPI. - Constitutional Vitals: Temp Pulse Resp BP Pulse Ox 97.8 F 64 18 111/63 100 06/22/18 09:39 06/22/18 11:47 06/22/18 11:47 06/22/18 11:47 06/22/18 11:47 Exam: General: Patient is alert, oriented, no acute distress, overweight Head: atraumatic, normocephalic, Eye: normal appearance, PERRL, no scleral icterus, no conjunctival injection ENT: mucous membranes moist, normal external ear exam Neck: normal inspection, trachea midline, full ROM, no carotid bruits Chest: normal inspection, symmetric chest rise Respiratory: Good respiratory effort. Bilateral breath sounds are clear without wheezing, crackles, or rhonchi. Cardiovascular: Regular rate and rhythm. s1 and s2 No clicks, rubs, gallops, or murmors. Abdomen: Bowel sounds present normoactive x-4 quadrants. Abdomen is soft, nondistended. no Epigastric tenderness. No guarding or rebound. No organomegaly noted, obese, scar is well-healed, right-sided CVA tenderness musculoskeletal: Spontaneously moving all extremities. no edema, no calf tenderness Skin: warm, dry, intact. Neuro: Alert and oriented x4. Sensation light touch intact. Cranial nerves 2- 12 is intact. Not aphasic, rapid hand movements intact, [id number] intact, Psych: Patient's affect is normal Internal Med - H&P Results - Labs CBC & Chem 7: 06/22/18 09:33 06/22/18 09:51 Labs: Short CBC 06/22/18 Range/Units 09:33 WBC 10.2 (4.3-11.1) K/mcL Hgb 11.4 L (11.5-15.4) g/dL Hct 35.5 (35.3-44.9) % Plt Count 242 (140-400) K/mcL Neutrophils # 6.8 (1.6-8.9) K/mcL BMP 06/22/18 09:51 Sodium 138 Potassium 3.9 Chloride 105 Carbon Dioxide 27 BUN 13 Creatinine 0.75 Glucose 98 Calcium 8.6 Liver Function 06/22/18 Range/Units 09:51 Total Bilirubin 0.4 (0.3-1.0) mg/dL Direct Bilirubin 0.1 (0.0-0.2) mg/dL AST 28 (13-39) Units/L ALT 34 (7-52) Units/L Alkaline Phosphatase 74 (34-104) Units/L Albumin 3.6 (3.5-5.7) g/dL Urine 06/22/18 Range/Units 09:28 Urine Color Yellow (Yellow) Urine Clarity Clear (Clear) Urine pH 5.5 (5.0-8.0) pH Units Ur Specific [place] 1.015 (1.010-1.025) Urine Protein Negative (Neg-Trace) mg/dL Urine Glucose (UA) Normal (Normal) mg/dL - Impressions ITS Impressions Abdomen/Pelvis CT 06/22/18 09:55 IMPRESSION: 1. 6.6 mm mid to distal right ureteral calculus with hydronephrosis. 2. Cholecystectomy. 3. Incidental right ovarian cyst 3.5 cm. No follow-up is recommended. RECOMMENDATIONS: No follow-up imaging is recommended. Reference: US BPRs based on Radiology 2010 May;256(3):943-54; CT/MR BPRs based on J Am Gianni Radiol 2013;10:675-681. D/ / 06/22/2018 10:28:22 Huey Jacobo MD / mello Interpreting Provider: Huey Jacobo MD - Assessment and plan (1) Ureterolithiasis Current Visit: Yes Status: Acute Assessment and plan: 6.6 mm mid to distal right ureteral calculus with hydronephrosis Urology was consulted by the ED physician Continue IV fluids with normal saline and 100 mL/h Continue Toradol 10 mg IV push every 4 hours for pain control I discussed with her and she is currently not breast-feeding We will start her on Flomax (2) DVT prophylaxis Current Visit: Yes Status: Acute Assessment and plan: Heparin subcutaneous - Time Spent With Patient Total time spent is greater than 50% in coordination of care (as documented) at patient's floor/unit and/or counseling patient:
[2018-06-22] MEDS ORDERED: Naloxone 0.4 MG/ML INJ IVP PRN (12:25)
--- NOTE | 2018-06-22 13:23 | Urology - Consult Note ---
Date of Encounter: 06/23/18 Time of Encounter: 13:14 - Assessment and Plan (1) Ureterolithiasis Current Visit: Yes Status: Acute Assessment and plan: I reveiwed the CT scan. the original plan was to discharge pt and followup sunday to assess and schedule for outpatient stone extraction if she didnt pass the stone. now admitted bc of pain control. plan to proceed with a ureteroscopic stone extraction with holmium laser lithotripsy on sunday. pt understands procedure. stent will be placed. there are no signs of sepsis or renal insufficency. Urology CN:HPI Consult date: 06/22/18 Reason for consult Urology: Hydronephrosis History of present illness: pt with a hx of urolithiasis. admitted for pain control secondary to a 7 mm distal right ureteral stone. no fever. Past Med Surg Social Fam HX - Past Medical History Medical history: kidney stones, other Additional medical history: herniated disk L5. 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 Psychiatric history: no psych history - Past Surgical History Surgical History: breast surgery, cholecystectomy Additional surgical history: L5, kidney stone removal, - Social History Smoking Status: Never smoker Smokeless Tobacco Status: No Alcohol use: none Drug use: none - Family History Mother Hx Family Cardiac Disorders: Yes (a-fib) Hx Family Respiratory Disorders: Yes (COPD) Hx Family Cancer: No Hx Family GI Disorders: No Hx Family Endocrine Disorder: No Hx Family Neurologic Disorders: Yes (Anuerysms) Hx Family HEENT Disorders: No Hx Family Autoimmune Disorders: No Father Adopted: No Family Member Ethnicity: Non- Living Status: Hx Family Cardiac Disorders: Yes (cardiomyopathy) Hx Family Respiratory Disorders: Yes (Emphy) Hx Family Cancer: No Hx Family GI Disorders: No Hx Family Endocrine Disorder: No Hx Family Neuromuscular Disorders: Yes (CVA) Hx Family Neurologic Disorders: No Hx Family HEENT Disorders: No Hx Family Autoimmune Disorders: No Medications and Allergies Docusate Sodium [Dok] 100 mg PO BID PRN 04/17/18 [History] Ferrous Sulfate [Iron] 325 mg PO BID 04/17/18 [History] Furosemide [Lasix] 20 mg PO DAILY #5 tablet 04/17/18 [Rx] Lidocaine Patch [Lidoderm 5% patch] 1 each TP DAILY 04/17/18 [History] Omeprazole [PriLOSEC] 20 mg PO BIDAC #60 capsule.dr 04/17/18 [Rx] Ondansetron HCl [Zofran] 4 mg PO QID PRN 04/17/18 [History] Potassium Chloride 40 meq PO DAILY #5 tab.er.prt 04/17/18 [Rx] Vit Calc,Iron,Folic [ Vitamins] 1 tab PO DAILY 04/17/18 [ History] Lidocaine [Lidoderm] 1 each TP DAILY PRN #5 adh..patch 05/10/18 [Rx] predniSONE [Prednisone] 50 mg PO DAILY 5 Days #5 tablet 05/10/18 [Rx] Ondansetron ODT [Zofran ODT] 4 mg SL Q6HR PRN #14 tab.rapdis 06/22/18 [Rx] Oxycodone HCl/Acetaminophen [Percocet 5-325 mg Tablet] 1 each PO Q4-6H PRN 3 Days #14 tablet 06/22/18 [Rx] 3 Allergy/AdvReac Type Severity Reaction Status Date / Time No Known Allergies Allergy Verified 04/10/18 06:42 Review of Systems - Constitutional no fever(s), no malaise - EENT Nose, mouth and throat: no dizziness - Cardiovascular no chest pain - Respiratory no cough - Gastrointestinal abdominal pain, nausea - Genitourinary Genitourinary: flank pain - Musculoskeletal back pain - Integumentary no erythema - Neurological no confusion - Psychiatric no anxiety - Hematologic/Lymphatic no easy bleeding - Allergic/Immunologic no throat swelling Exam Initial Vital Signs Temp Pulse Resp BP Pulse Ox 97.8 F 74 18 122/84 99 06/22/18 09:25 06/22/18 09:25 06/22/18 09:25 06/22/18 09:25 06/22/18 09:25 - General physical appearance Present: well developed, no distress - Eyes Present: PERRL, conjunctiva is clear - ENT Present: normal nares - Neck Present: no masses, no lymphadenopathy - Respiratory Present: normal respiratory effort - Cardiovascular Cardiovascular exam IM: RRR - Abdomen Abdomen: Present: soft (CVA tenderness) - Integumentary Present: no rash, no growths - Neurologic Present: normal coordination. Absent: disoriented, confused Urology Results - Labs 06/23/18 04:43 06/23/18 04:43 Abnormal lab results Hgb 11.4 g/dL (11.5-15.4) L 06/22/18 09:33 MCH 27.9 pg (28.0-33.3) L 06/22/18 09:33 Serum Total Protein 6.2 g/dL (6.4-8.9) L 06/22/18 09:51 Lipase 5 Units/L (11-82) L 06/22/18 09:51 Urine Blood Trace (Negative) H 06/22/18 09:28 Urine Microscopic WBC 3-5 per hpf (0-3) H 06/22/18 09:28 Ur Squamous Epith Cells Many per lpf (None-Few) H 06/22/18 09:28 All other labs normal. Consult Discharge Plan - Plan Referrals: NONE,PCP [Primary Care Provider] -
[2018-06-22] MEDS: 0.9 % Sodium Chloride 1,000 ML IVC SCH ×2 (14:05→21:35)
[2018-06-22] MEDS: *HR* Heparin 5,000 UNIT/ML VIAL SQ SCH ×2 (14:08→21:34)
[2018-06-22] MEDS: Ketorolac 15 MG/ML VIAL IVP PRN (19:40)
[2018-06-23] MEDS: Ketorolac 15 MG/ML VIAL IVP PRN (04:02)
[2018-06-23] MEDS: *HR* Heparin 5,000 UNIT/ML VIAL SQ SCH (05:10)
[2018-06-23] MEDS: 0.9 % Sodium Chloride 1,000 ML IVC SCH (05:12)
[2018-06-23 05:45] LABS: Hematocrit 31.7 % (35.3-44.9); Mean Corpuscular HGB Conc 31.5 g/dL (31.6-35.5); Mean Corpuscular Hemoglobin 27.2 pg (28.0-33.3); Mean Corpuscular Volume 86.4 fL (83.0-100.0); Mean Platelet Volume 10.7 fL (9.4-12.4); Platelet Count 206 K/mcL (140-400); Red Blood Count 3.67 M/mcL (3.82-4.97); Red Cell Distribution Width 13.6 % (11.5-14.5)
[2018-06-23 06:07] LABS: BUN/Creatinine Ratio 17 (6-26); Blood Urea Nitrogen 12 mg/dL (6-20); Calcium 7.8 mg/dL (8.6-10.3); Carbon Dioxide 24 mEq/L (23-29); Chloride 110 mEq/L (98-107); Glucose 96 mg/dL (70-105); Osmolality,Calculated 290 (280-300); Potassium 3.8 mEq/L (3.5-5.1); Sodium 140 mEq/L (136-145); eGFR For Non-African Americans > 60 (> 60)
--- NOTE | 2018-06-23 07:08 | Anesthesia Evaluation PreOp ---
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: Other (s/p Discectomy) Other Medical History: Denies Any Significant HX Anesthesia History: No Prior Anesthetic Complications : No Test: Negative Alcohol Use: none Drug use: none Medications and Allergies Docusate Sodium [Dok] 100 mg PO BID PRN 04/17/18 [History] Ferrous Sulfate [Iron] 325 mg PO BID 04/17/18 [History] Furosemide [Lasix] 20 mg PO DAILY #5 tablet 04/17/18 [Rx] Lidocaine Patch [Lidoderm 5% patch] 1 each TP DAILY 04/17/18 [History] Omeprazole [PriLOSEC] 20 mg PO BIDAC #60 capsule.dr 04/17/18 [Rx] Ondansetron HCl [Zofran] 4 mg PO QID PRN 04/17/18 [History] Potassium Chloride 40 meq PO DAILY #5 tab.er.prt 04/17/18 [Rx] Vit Calc,Iron,Folic [ Vitamins] 1 tab PO DAILY 04/17/18 [ History] Lidocaine [Lidoderm] 1 each TP DAILY PRN #5 adh..patch 05/10/18 [Rx] predniSONE [Prednisone] 50 mg PO DAILY 5 Days #5 tablet 05/10/18 [Rx] Ondansetron ODT [Zofran ODT] 4 mg SL Q6HR PRN #14 tab.rapdis 06/22/18 [Rx] Oxycodone HCl/Acetaminophen [Percocet 5-325 mg Tablet] 1 each PO Q4-6H PRN 3 Days #14 tablet 06/22/18 [Rx] 3 Allergy/AdvReac Type Severity Reaction Status Date / Time No Known Allergies Allergy Verified 04/10/18 06:42 - Meds/Allergy Pre-op Review Medications Reviewed: Yes Allergies Reviewed: Yes Beta Blockers on Current Med List: No Anesthesia Results - Labs 06/23/18 04:43 06/23/18 04:43 - Imaging EKG: report reviewed (Sinus Tach) Additional studies: ECHO 2018 EF 60%, no pulm htn Anesthesia Exam Vital Signs/O2 Sat/Glucose, Most Current Temp Pulse Resp BP Pulse Ox 06/23/18 06:49 97.7 F 76 15 110/66 95 06/23/18 04:02 97.8 F 73 16 104/57 97 Height: 5'7 Weight: 196 lbs NPO (# of Hours): MN Pain Scale: 0 - HEENT Pupil (Motor): Pupils equal, EOMI Mallampati: II Teeth: Normal Oral Opening: Greater than 3 - CUT PRESS OPERATOR LOC: Oriented CUT PRESS OPERATOR Motor: Normal RUE, Normal LUE, Normal RLE, Normal LLE, Normal Face CUT PRESS OPERATOR Sensory: Normal: RUE, LUE, RLE, LLE, Face - Cardiac Rhythm: Regular Murmur: None JVD: No Carotid Bruit: No - Pulmonary Breath Sounds: bilateral Clear Respiratory Effort: Symmetrical Anesthesia Assess/Plan ASA Score: 2 Modified Worthing Scale for Level of Consciousness: Cooperative, oriented, and tranquil Anesthetic Plan: General Monitoring Plan: Standard Monitors Recovery Plan: PACU (Discussed GA, agrees to proceed)
[2018-06-23] MEDS ORDERED: *HR* FentaNYL (PF) 100 MCG/2 ML VIAL ONE (07:10)
[2018-06-23] MEDS ORDERED: *HR* Propofol 200 MG/20 ML VIAL IVP ONE (07:10)
[2018-06-23] MEDS ORDERED: *HR* Midazolam HCl 2 MG/2 ML VIAL ONE (07:10)
[2018-06-23] MEDS ORDERED: Lidocaine -MPF 2% 2 ML VIAL ONE (07:15)
[2018-06-23] MEDS ORDERED: *HR* OxyCODONE Immed Rel 5 MG TABLET PO PRN (07:16)
[2018-06-23] MEDS ORDERED: *HR* Morphine 2 MG/ML SYRINGE IVP PRN (07:16)
[2018-06-23] MEDS ORDERED: *HR* HYDROmorphone 2 MG TABLET PO PRN (07:16)
[2018-06-23] MEDS ORDERED: *HR* Promethazine 25 MG/ML VIAL IVP PRN (07:16)
[2018-06-23] MEDS ORDERED: Albuterol 2.5 MG/3 ML NEBULIZER IH ONE ×2 (07:16→10:03)
[2018-06-23] MEDS ORDERED: *HR* Labetalol 20 MG/4 ML SYRINGE IVP PRN (07:16)
[2018-06-23] MEDS ORDERED: Acetaminophen IV 1,000 MG/100 ML INFUS..BTL ONE (07:41)
[2018-06-23] MEDS ORDERED: Famotidine 20 MG/2 ML VIAL ONE (07:41)
[2018-06-23] MEDS ORDERED: Scopolamine Patch 1.5 MG PATCH.TD72 ONE (07:47)
[2018-06-23] MEDS ORDERED: Isovue-300 50 ML VIAL IVP ONE (07:55)
[2018-06-23] MEDS ORDERED: cefTRIAXone 1,000 MG in 0.9 % Sodium Chloride Mini Bag 100 ML IVPB ONE (08:00)
[2018-06-23] MEDS ORDERED: Dexamethasone 4 MG/ML VIAL ONE (08:16)
[2018-06-23] MEDS ORDERED: Ondansetron 4 MG/2 ML VIAL ONE (08:16)
[2018-06-23] MEDS ORDERED: Ketorolac 30 MG/ML VIAL ONE (08:26)
--- NOTE | 2018-06-23 08:56 | Operative Note ---
Date of procedure: 06/23/18 Pre-op diagnosis: right mid-to distal 6 mm ureteral stone Post-op diagnosis: same Procedure: right ureteroscopic stone extraction right retrograde pyelogram. Right Ureteral stent Anesthesia: GETA Surgeon: Marco Urban Was there an field administrative assistant present: No Estimated blood loss (cc): 0 Specimen: stone Condition: stable Disposition: PACU Procedure in Detail: PROCEDURE IN DETAIL: Patient was taken back to the operating room, positioned supine on the operating table. Anesthesia was applied without complication. They were moved into dorsal lithotomy. Careful attention was maintained to cushion all pressure points for patient's safety. They were prepped and draped in sterile fashion. Time-out was performed with the proper patient and procedure. A 21-[place] rigid cystoscope was inserted into the bladder without difficulty. Systematic examination of bladder revealed no abnormalities. The right ureteral orifice was cannulated using a 5-[place] Citizen ureteral Catheter and a retrograde pyelogram was performed using Isovue. A filling defect was identified which corresponded to the stone. At that point, a zip wire was placed through the 5-[place] and confirmed in the renal pelvis with fluoroscopy. An 8-10 dilator was then placed over the zip wire to passively dilate the ureteral orifice. A semi-rigid ureteroscope was carefully inserted into the bladder and guided into the ureteral oriface. At that point, the stone was encountered and i was able to basket extract the stone without performing laser lithotripsy. the stone actually fragmented into 3 pieces while it was manipulated with the basket. all stone and the ureter was removed. a 6 x 26 ureteral stent was placed at the end of the procedure.the bladder was drained along with stone fragments. They were sent for specimen. A string was left attached to the stent.
--- NOTE | 2018-06-23 09:03 | Event Note ---
Date of Encounter: 06/23/18 Time of Encounter: 09:02 Okay to discharge per urology standpoint. Stone was successfully extracted. Okay to use [id number] AZO for dysuria. Patient can remove the stent at home at the earliest 3 days. I recommend she leave the stent for a few days longer to help prevent post stent removal discomfort from ureteral spasm and swelling. My office will contact patient for follow-up appointment.
--- NOTE | 2018-06-23 09:53 | Anesthesia Evaluation Post Op ---
Date of Encounter: 06/23/18 Time of Encounter: 09:15 - Vital Signs Vital Signs: Vital Signs/O2 Sat/Glucose, Most Current Temp Pulse Resp BP Pulse Ox 06/23/18 09:06 97.8 F 79 16 107/70 97 06/23/18 08:56 78 16 107/69 96 06/23/18 08:46 73 16 104/63 95 06/23/18 08:36 97.4 F L 69 16 92/56 98 06/23/18 06:49 97.7 F 76 15 110/66 95 - Lungs Lungs: Clear Ascult./Percussion - Airway Airway: Non-obstructed - Cardiovascular Regular Rate - Mental Status Mental Status: Alert & Oriented, Answers Appropriately - Pain Pain Scale: 0 - Nausea Vomiting Nausea Vomiting: Not Present - Hydration Hydration: Tolerates oral liquids - Discharge PostOp Status: Transfer Patient to floor
[2018-06-23] MEDS ORDERED: Ketorolac 15 MG/ML VIAL IVP PRN (10:03)
[2018-06-23] MEDS ORDERED: Naloxone 0.4 MG/ML INJ IVP PRN (10:03)
[2018-06-23] MEDS ORDERED: *HR* HYDROcodone/Acet 5/325 mg TABLET PO PRN (10:03)
[2018-06-23 12:37] VITALS: BP 131/73
--- NOTE | 2018-06-23 13:45 | Discharge Summary ---
- NOTES TO OUTPATIENT PROVIDER Notes to Outpatient Provider: urology Orders not resulted at time of discharge: Pending orders 06/23/18 08:40 Surgical Pathology [PTH] Routine Date of Encounter: 06/23/18 Time of Encounter: 11:00 - Discharge Diagnosis (1) Ureterolithiasis Priority: Primary Status: Acute Hospital course: Ms. Lomax is a 47 year old female with history of obstructive uropathy requiring intervention, multiple kidney stones requiring admission, lithotripsy and extraction with recent discectomy presented to the emergency department with complaint of right-sided flank pain. She reports that the pain is sharp in nature, 7 out of 10, and radiates to the right lower quadrant. She has had similar pain in the past and was diagnosed with kidney stones requiring intervention. She denies dysuria, hematuria, frequency. In addition to right flank pain she also reports nausea, denies vomiting or diarrhea. Her pain is aggravated with movement and palpation of the right flank. Minimally relieved with pain medicine that she was prescribed at home. She recently had a discectomy done about 2 weeks ago and was discharged with Vicodin which mildly helps her pain. Since her symptoms were similar to her symptoms when she was diagnosed with kidney stones she decided to come to the emergency department for further evaluation. 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 She recently had a 9 weeks ago, denies any difficulties with her or delivery. She is currently not breast-feeding. In the ED CT abdomen and pelvis was performed, it showed 6.6 mm mid to distal right ureteral calculus with hydronephrosis. Urology (Dr. Urban) was consulted by the ED physician it was recommended for her to follow-up as outpatient with urology office. As per ED physician While speaking to the patient for discharge she was reserved to return home on stronger pain medications as her Vicodin was not helping her pain so urology was recontacted by the ED physician and it was recommended for her to be admitted to the hospitalist service for pain management with urology as performance consultant. During hospital stay right ureteroscopic stone extraction was done by urology and Right Ureteral stent placed. Patient will f/u with urology as an outpatient - Time Spent with Patient Total time spent providing and/or coordinating discharge services: Less than 30 minutes - Discharge Medications Home Medications: Docusate Sodium [Dok] 100 mg PO BID PRN 04/17/18 [History] Ferrous Sulfate [Iron] 325 mg PO BID 04/17/18 [History] Furosemide [Lasix] 20 mg PO DAILY #5 tablet 04/17/18 [Rx] Lidocaine Patch [Lidoderm 5% patch] 1 each TP DAILY 04/17/18 [History] Omeprazole [PriLOSEC] 20 mg PO BIDAC #60 capsule.dr 04/17/18 [Rx] Ondansetron HCl [Zofran] 4 mg PO QID PRN 04/17/18 [History] Potassium Chloride 40 meq PO DAILY #5 tab.er.prt 04/17/18 [Rx] Vit Calc,Iron,Folic [ Vitamins] 1 tab PO DAILY 04/17/18 [ History] Lidocaine [Lidoderm] 1 each TP DAILY PRN #5 adh..patch 05/10/18 [Rx] predniSONE [Prednisone] 50 mg PO DAILY 5 Days #5 tablet 05/10/18 [Rx] Ondansetron ODT [Zofran ODT] 4 mg SL Q6HR PRN #14 tab.rapdis 06/22/18 [Rx] Oxycodone HCl/Acetaminophen [Percocet 5-325 mg Tablet] 1 each PO Q4-6H PRN 3 Days #14 tablet 06/22/18 [Rx] Allergies/Adverse Reactions: 3 Allergy/AdvReac Type Severity Reaction Status Date / Time No Known Allergies Allergy Verified 04/10/18 06:42 Date of admission: 06/22/18 13:05 Primary care physician: PCP NONE - Constitutional Vitals: Temp Pulse Resp BP Pulse Ox 98.6 F 99 16 131/73 97 06/23/18 12:33 06/23/18 12:33 06/23/18 12:33 06/23/18 12:33 06/23/18 12:33 General appearance: Present: A&O X 3 Exam: see above - GI/Abdominal GI/Abdominal exam: Present: normal bowel sounds, soft, no peritoneal signs. Absent: distended, tenderness - Patient Status Disposition: Home, Self-Care Condition: Good - Discharge Instructions Instructions: Urinary Tract Infection in Women (DC) Follow Up With: NONE,PCP [Primary Care Provider] -
[2018-06-27 18:53] LABS: Calculi Mass 15 mg
== END 2018-06-23 14:40 | disposition home or self-care (01) ==
LOC: EMEROOARM 09:24 → 3ANU 09:24 → SUATTDRO 13:05 → 3ANU 13:52
PROVIDERS: ADMIT Internal Medicine; ATTEND Hospitalist